=== PATIENT | female | born 1970 | race Caucasian/White ===

== ENCOUNTER 2017-04-19 22:02 | Emergency (ER) | payer OTHER ==
[~2017-04-19] VITALS: Ht 167.6 cm; Wt 99.8 kg
[~2017-04-19 22:02] MED LIST: CYCL10TA2 PO; ESCI20TA PO; ONDA4TAB10 SL; TRAM50TA PO; [UNRECOGNIZED DRUG - CODE] PO
[2017-04-19] MEDS ORDERED: ZOFRAN ODT ONE (22:31)
[2017-04-19] MEDS ORDERED: TORADOL IV STA (22:31)
[2017-04-19] MEDS ORDERED: ZOFRAN IV STA (22:31)
[2017-04-19] MEDS ORDERED: NS 1000ML 1,000 ML ONE (22:31)
[2017-04-19] MEDS ORDERED: ZOFRAN ONE (22:32)
[2017-04-19] MEDS ORDERED: TORADOL ONE (22:32)
--- NOTE | 2017-04-19 22:38 | NUR ---
URINE COLLECTED AND TAKEN TO LAB
--- NOTE | 2017-04-19 22:40 | ER.PDOC ---
General Chief Complaint: Abdomen Pain Stated Complaint: ABD PAIN Time seen by MD: 22:33 Source: patient, family History of Present Illness Initial Comments PT EXPERIENCED SHARP RUQ ABD PAIN POST PRANDIALLY, DENIES F/C, NAUSEA VOMITING ENSUED AFTER SHORT PERIOD OF TIME Allergies: Coded Allergies: No Known Allergies (Unverified , 06/22/16) Home Meds Reported Medications Omeprazole Magnesium (OMEPRAZOLE MAGNESIUM) 20 Mg Capsule.dr, 20 MG PO DAILY 06/22/16 Escitalopram Oxalate (ESCITALOPRAM OXALATE) 20 Mg Tablet, 1 TAB PO DAILY, #30 TAB 5 Refills 06/22/16 Ondansetron (ZOFRAN ODT) 4 Mg Tab.rapdis, 1 TAB SL Q8HR, #15 TAB 06/22/16 Cyclobenzaprine Hcl (FLEXERIL) 10 Mg Tablet, 1 TAB PO TID, #90 TAB 06/22/16 Vital Signs First Vital Signs Date Time Temp Pulse Resp B/P (MAP) Pulse Ox O2 Delivery O2 Flow Rate FiO2 04/19/17 22:18 98.3 109 18 94 Last Vital Signs Date Time Temp Pulse Resp B/P (MAP) Pulse Ox O2 Delivery O2 Flow Rate FiO2 04/19/17 22:22 98.3 04/19/17 22:18 109 18 94 Past Medical History Surgical History: hysterectomy LMP (females 10-50): hysterectomy Social History Smoking: non-smoker Alcohol Use: none Drug Use: none Constitutional: no symptoms reported EENTM: no symptoms reported Respiratory: no symptoms reported Cardiovascular: no symptoms reported Gastrointestinal: see HPI, abdominal pain, nausea, vomiting Genitourinary: no symptoms reported Musculoskeletal: no symptoms reported Skin: no symptoms reported Physical Exam General Appearance: Moderate Distress HEENT: PERRL/EOMI, Normal ENT Inspection, TMs Normal, Pharynx Normal Neck: Non-Tender, Full Range of Motion, Supple, Normal Inspection Respiratory: chest non-tender, lungs clear, normal breath sounds, no respiratory distress, no accessory muscle use Cardiovascular: Normal Peripheral Pulses, Regular Rate, Rhythm, No Edema, No Gallop, No JVD, No Murmur Gastrointestinal: Normal Bowel Sounds, No Organomegaly, No Pulsatile Mass, Tenderness, McBurneys 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 pt has had some relief of symptom pt had CT scsan which reealed mesenteric stranding which may indicate an inflammatory process pt hemodynamically stable, will DC to follow up with Dr Zaragoza in [place] Course Blood Pressure Systolic: 171 Blood Pressure Diastolic: 87 Blood Pressure Mean: 115 Departure Time of Disposition: 01:48 Disposition: 01 HOME, SELF-CARE Impression: Primary Impression: Abdominal pain Condition: Stable Referrals: ADAN ZARAGOZA (PCP) PRIMARY CARE PROVIDER Problem Qualifiers Primary Impression: Abdominal pain Abdominal location: right upper quadrant Qualified Codes: R10.11 - Right upper quadrant pain AYSE VALLE MD Apr 19, 2017 22:40
[2017-04-19 22:44] LABS: BASOPHIL % 0.2 % (0.0-0.2); EOSINOPHIL # 0.3 10^3/uL (0.0-0.2); EOSINOPHIL % 1.6 % (0.0-5.0); HEMOGLOBIN 13.6 g/dL (12.0-15.0); LYMPHOCYTES # 1.8 10^3/uL (1.0-4.8); MEAN CELL HGB 30.8 pg (26-34); MEAN CELL HGB CONCENTRATION 32.6 g/dL (33-37); MEAN CORP VOLUME 94.3 fL (78-100); MEAN PLATELET VOLUME 9.9 fL (7.8-11.0); MONOCYTES # 0.6 10^3/uL (0.3-0.8); MONOCYTES % 3.3 % (5.0-12.0); NEUTROPHILS % 84.6 % (41.0-85.0); RED CELL DISTRIBUTION WIDTH 13.4 % (11.5-14.5); WHITE BLOOD CELL 17.7 10^3/uL (4.5-11.0)
[2017-04-19] MEDS ORDERED: ZOFRAN ODT SL STA (22:45)
[2017-04-19 22:46] LABS: BILIRUBIN,URINE NEGATIVE (NEGATIVE); UROBILINOGEN,URINE NORMAL (NEGATIVE)
--- NOTE | 2017-04-19 22:46 | NUR ---
LAB DRAW BLOOD DRAWN WITH IV START
[2017-04-19 22:59] LABS: CALCIUM 9.3 mg/dL (8.4-10.5); CARBON DIOXIDE 22.8 mmol/L (20.0-32)
[2017-04-19] MEDS ORDERED: NS 1000ML 1,000 ML IV ONE (23:00)
[2017-04-19 23:17] LABS: APPEARANCE,URINE CLEAR (CLEAR); UA COLOR YELLOW (YELLOW); WBC,URINE 0-2 WBC/HPF (0-2)
--- NOTE | 2017-04-20 00:34 | NUR ---
CT EDP IN ROOM WITH PATIENT, NEW ORDER FOR CT ABD/PELVIS. XRAY NOTIFIED
--- NOTE | 2017-04-20 00:56 | NUR ---
TO CT PATIENT TO CT VIA WHEELCHAIR WITH ALEXANDER,RAD
--- NOTE | 2017-04-20 01:29 | DIREP ---
PROCEDURE:CT ABDOMEN/PELVIS W/ CONTRAST COMPARISON:[facility], CT, CT ABD/PELVIS W/ CONTRAST, 09/27/2016, 03:30 PM. INDICATIONS:abdominal pain TECHNIQUE:Axial images were created through the abdomen and pelvis with non-ionic intravenous contrast material. No oral contrast was administered. Sagittal and coronal reconstructions were performed from source images. FINDINGS: LUNG BASES:Normal. No visible pulmonary or pleural disease. LIVER:Normal. No significant liver lesions are identified. BILIARY:Normal. No visible dilatation or calcification. PANCREAS:Normal. No lesion, fluid collection, ductal dilatation, or atrophy. SPLEEN:Normal. No enlargement or focal lesion. ADRENALS:Normal. No mass or enlargement. URINARY TRACT:Normal. No focal lesions or hydronephrosis. AORTA/VASCULAR:Normal. No aneurysm. RETROPERITONEUM:Normal. No mass or adenopathy. BOWEL/MESENTERY:Postsurgical changes of loops of bowel in the lower abdomen/pelvis, with mesenteric fat stranding. No definite bowel obstruction or dilatation, however. ABDOMINAL WALL:Stable postsurgical stranding. No drainage catheter seen. No mass or hernia. PELVIC ORGANS:The uterus is surgically absent. No visible mass. BONES:Normal for age. No bony lesion or acute fracture. OTHER:The appendix is not identified with certainty. CONCLUSION:Postsurgical changes of loops of bowel in the lower abdomen/pelvis, with mesenteric fat stranding, possibly due to inflammatory or infectious process. No definite bowel obstruction or dilatation. No free air or abscess. Dictated by: Sanchez Hussein M.D. on 04/20/2017 at 01:24 AM
[2017-04-20 01:57] VITALS: BP 146/74
[2017-04-20] MEDS ORDERED: TRAM50TA PO (19:57)
== END 2017-04-20 01:54 | disposition home or self-care (01) ==
LOC: ER 22:02
DX: R10.11 Right upper quadrant pain (principal); R11.2 Nausea with vomiting, unspecified; Z79.899 Other long term (current) drug therapy
CPT/HCPCS: 36415; 74177; 80053; 81000; 82150; 85025; 86677; 96361; 96374; 96375; 99285; J1885; J2405; J7030; Q0162; Q9967

== ENCOUNTER 2017-04-20 17:59 | Emergency (ER) | payer OTHER ==
[~2017-04-20] VITALS: Ht 167.6 cm; Wt 99.8 kg
--- NOTE | 2017-04-20 19:38 | NUR ---
PT TO BATHROOM FOR UA COLLECTION
--- NOTE | 2017-04-20 19:45 | NUR ---
PT TO ER RM 6 ACCOMPANIED BY
[2017-04-20] MEDS ORDERED: TRAM50TA PO (19:57)
[2017-04-20 20:32] LABS: BASOPHIL % 0.3 % (0.0-0.2); EOSINOPHIL # 0.5 10^3/uL (0.0-0.2); EOSINOPHIL % 3.6 % (0.0-5.0); HEMOGLOBIN 13.9 g/dL (12.0-15.0); LYMPHOCYTES # 2.1 10^3/uL (1.0-4.8); MEAN CELL HGB 30.6 pg (26-34); MEAN CELL HGB CONCENTRATION 32.2 g/dL (33-37); MEAN CORP VOLUME 95.2 fL (78-100); MEAN PLATELET VOLUME 10.2 fL (7.8-11.0); MONOCYTES # 0.5 10^3/uL (0.3-0.8); MONOCYTES % 4.1 % (5.0-12.0); NEUTROPHILS % 75.8 % (41.0-85.0); RED CELL DISTRIBUTION WIDTH 13.5 % (11.5-14.5); WHITE BLOOD CELL 13.2 10^3/uL (4.5-11.0)
[2017-04-20 20:34] LABS: BILIRUBIN,URINE NEGATIVE (NEGATIVE); UROBILINOGEN,URINE NORMAL (NEGATIVE)
[2017-04-20 20:47] LABS: CALCIUM 9.2 mg/dL (8.4-10.5); CARBON DIOXIDE 28.1 mmol/L (20.0-32)
[2017-04-20] MEDS ORDERED: ZOFRAN IV STA (20:47)
--- NOTE | 2017-04-20 20:47 | ER.PDOC ---
General Chief Complaint: Abdomen Pain Stated Complaint: ABDOMINAL PAIN Time seen by MD: 20:30 Source: patient Exam Limitations: no limitations History of Present Illness Initial Comments 46 year old white female with abdominal pain. Started yesterday with nausea, vomiting and mild diarrhea. She was seen in ER yesterday with wbc of [address] was non specific. Sent home on pain medication but symptoms are persistent and getting worse. No fever, no chills. No dysuria. Timing/Duration: 24 hours Severity/Quality: moderate Radiation: no radiation Associated Symptoms: nausea/vomiting Exacerbated by: movements Relieved By: remaining still Allergies: Coded Allergies: No Known Allergies (Unverified , 04/20/17) Home Meds Reported Medications Tramadol Hcl (TRAMADOL HCL) 50 Mg Tablet, 50 MG PO Q6, TABLET 04/20/17 Omeprazole Magnesium (OMEPRAZOLE MAGNESIUM) 20 Mg Capsule.dr, 20 MG PO DAILY 06/22/16 Escitalopram Oxalate (ESCITALOPRAM OXALATE) 20 Mg Tablet, 1 TAB PO DAILY, #30 TAB 5 Refills 06/22/16 Ondansetron (ZOFRAN ODT) 4 Mg Tab.rapdis, 1 TAB SL Q8HR, #15 TAB 06/22/16 Cyclobenzaprine Hcl (FLEXERIL) 10 Mg Tablet, 1 TAB PO TID, #90 TAB 06/22/16 Vital Signs First Vital Signs Date Time Temp Pulse Resp B/P (MAP) Pulse Ox O2 Delivery O2 Flow Rate FiO2 04/20/17 19:49 98.4 108 16 95 04/20/17 19:54 152/102 (119) Last Vital Signs Date Time Temp Pulse Resp B/P (MAP) Pulse Ox O2 Delivery O2 Flow Rate FiO2 04/20/17 19:54 98.4 108 16 152/102 (119) 95 Past Medical History Medical History: other (depression, chronic pain symptoms) Surgical History: hysterectomy, other (knee, ankle surgery) Family History Significant Family History: no pertinent family hx Social History Smoking: non-smoker Alcohol Use: occassionally Drug Use: none Constitutional: weakness EENTM: denies no symptoms reported, denies see HPI, denies eye pain, denies blurred vision, denies tearing, denies double vision, denies ear pain, denies ear discharge, denies nose pain, denies nose congestion, denies throat pain, denies throat swelling, denies mouth pain, denies mouth swelling, denies other Respiratory: denies no symptoms reported, denies see HPI, denies cough, denies orthopnea, denies shortness of breath, denies SOB with exertion, denies SOB at rest, denies stridor, denies wheezing, denies other Cardiovascular: denies no symptoms reported, denies see HPI, denies chest pain , denies edema, denies irregular heart rate, denies lightheadedness, denies palpitations, denies syncope, denies other Gastrointestinal: see HPI Genitourinary: denies no symptoms reported, denies see HPI, denies burning, denies dysuria, denies discharge, denies frequency, denies flank pain, denies hematuria, denies incontinence, denies pain, denies urgency, denies other Musculoskeletal: denies no symptoms reported, denies see HPI, denies back pain , denies gout, denies joint pain, denies joint swelling, denies muscle pain, denies muscle stiffness, denies neck pain, denies other Skin: denies no symptoms reported, denies see HPI, denies change in color, denies change in hair/nails, denies dryness, denies lesions, denies lumps, denies rash, denies other Psychiatric/Neurological: denies no symptoms reported, denies see HPI, denies anxiety, denies depressed, denies emotional problems, denies headache, denies numbness, denies paresthesia, denies pre-existing deficit, denies seizure, denies tingling, denies tremors, denies weakness, denies other Endocrine: denies no symptoms reported, denies see HPI, denies excessive sweating, denies flushing, denies intolerance to cold, denies intolerance to heat, denies increased hunger, denies increased thrist, denies increased urine, denies unexplained weight gain, denies unexplaned weight loss, denies other Hematologic/Lymphatic: denies no symptoms reported, denies see HPI, denies anemia, denies blood clots, denies easy bleeding, denies easy bruising, denies swollen glands, denies other Physical Exam General Appearance: No Apparent Distress, WD/WN HEENT: PERRL/EOMI, Normal ENT Inspection, TMs Normal, Pharynx Normal, Other ( mucosa is dry) Neck: Non-Tender, Full Range of Motion, Supple, Normal Inspection Respiratory: chest non-tender, lungs clear, normal breath sounds, no respiratory distress, no accessory muscle use Cardiovascular: Normal Peripheral Pulses, Regular Rate, Rhythm, No Edema, No Gallop, No JVD, No Murmur Gastrointestinal: Normal Bowel Sounds, Soft, Other (response to physical maneuver appears to be exaggerated. 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, No Motor/Sensory Deficits, Alert, Normal Mood/Affect, Oriented x 3 Skin: Normal Color, Warm/Dry Lymphatic: No Adenopathy Results/Orders Results/Orders Laboratory Tests Test 04/20/17 19:45 White Blood Count 13.2 10^3/uL (4.5-11.0) Red Blood Count 4.54 10^6/uL (4.00-5.20) Hemoglobin 13.9 g/dL (12.0-15.0) Hematocrit 43.2 % (36.0-46.0) Mean Corpuscular Volume 95.2 fL (78-100) Mean Corpuscular Hemoglobin 30.6 pg (26-34) Mean Corpuscular Hemoglobin Concent 32.2 g/dL (33-37) Red Cell Distribution Width 13.5 % (11.5-14.5) Platelet Count 269 10^3/uL (150-400) Mean Platelet Volume 10.2 fL (7.8-11.0) Neutrophils (%) (Auto) 75.8 % (41.0-85.0) Lymphocytes (%) (Auto) 16.0 % (24.0-44.0) Monocytes (%) (Auto) 4.1 % (5.0-12.0) Neutrophils # (Auto) 10.0 10^3/uL (1.8-7.7) Lymphocytes # (Auto) 2.1 10^3/uL (1.0-4.8) Monocytes # (Auto) 0.5 10^3/uL (0.3-0.8) Absolute Immature Granulocyte (auto 0.02 10^3 u/L (0-2) Eosinophils % 3.6 % (0.0-5.0) Basophils % 0.3 % (0.0-0.2) Basophils # 0.0 10^3/uL (0.0-0.1) Eosinophil Count 0.5 10^3/uL (0.0-0.2) Percent Immature Gran (Cell Imm) 0.20 % (0.00-0.50) Helicobacter pylori Screen NEGATIVE (NEGATIVE) Progress Progress Labs and sonogram results reviewed with patient. Non surgical Course Blood Pressure Systolic: 152 Blood Pressure Diastolic: 102 Blood Pressure Mean: 119 Departure Time of Disposition: 22:24 Disposition: 01 HOME, SELF-CARE Impression: Primary Impression: Abdominal pain Additional Impression: Gastroenteritis Condition: Stable Referrals: ADAN KEARNEY (PCP) PRIMARY CARE PROVIDER Additional Instructions: Clear liquid diet Phenergan prn Tylenol #3 prn Bentyl prn RTER prn Follow up PCP Problem Qualifiers Primary Impression: Abdominal pain Abdominal location: generalized Qualified Codes: R10.84 - Generalized abdominal pain KHRIS BAUER MD Apr 20, 2017 20:47
[2017-04-20 20:53] LABS: APPEARANCE,URINE CLEAR (CLEAR); UA COLOR YELLOW (YELLOW)
[2017-04-20 20:54] LABS: WBC,URINE 0-2 WBC/HPF (0-2)
[2017-04-20] MEDS ORDERED: NS 1000ML 1,000 ML ONE (20:57)
[2017-04-20] MEDS ORDERED: ZOFRAN ONE (20:58)
[2017-04-20] MEDS ORDERED: MORPHINE SULFATE ONE (20:58)
[2017-04-20] MEDS ORDERED: NS 1000ML 1,000 ML IV ONE (21:00)
[2017-04-20] MEDS ORDERED: MORPHINE SULFATE IV PRN (21:00)
--- NOTE | 2017-04-20 22:02 | DIREP ---
PROCEDURE:US ABDOMEN LIMITED (SINGLE ORGAN - QUAD) COMPARISON:None. INDICATIONS:DIARRHEA, CRAMPING PAIN, TECHNIQUE:High resolution sonographic examination was performed of the abdomen. FINDINGS: RIGHT KIDNEY:10.77 cm x 5.41 cm x 4.86 cm, 148.21 ml GALL BLADDER WALL:1.87 mm CBD:5.0 mm PANCREAS:Normal. LIVER:Increased echotexture compatible hepatic steatosis. No significant masses. BILIARY:Normal appearing gallbladder and biliary tree. RIGHT KIDNEY:Negative. OTHER:Negative. CONCLUSION: Hepatic steatosis. No evidence of gallstones. No biliary ductal dilatation. Dictated by: Nikita Escudero MD on 04/20/2017 at 09:57 PM
[2017-04-20 22:44] VITALS: BP 117/72
== END 2017-04-20 22:40 | disposition home or self-care (01) ==
LOC: ER 17:59
DX: K52.9 Noninfective gastroenteritis and colitis, unspecified (principal); F32.9 Major depressive disorder, single episode, unspecified; Z79.899 Other long term (current) drug therapy
CPT/HCPCS: 36415; 76705; 80053; 81000; 82150; 83690; 85025; 85610; 86677; 96361; 96374; 96375; 99285; J2270; J2405; J7030

== ENCOUNTER → 2019-01-21 | Outpatient (CLI) | payer BC ==
--- NOTE | 2019-01-21 16:26 | DIREP ---
PROCEDURE:XRAY RIBS 3VWS-LT COMPARISON:None. INDICATIONS:R07.81 RIB PAIN ON LEFT SIDE FINDINGS: RIBS:Nondisplaced fractures of the anterior 4th, 5th, and 6th left ribs OTHER:Blunting of the left costophrenic angle CONCLUSION: 1. Nondisplaced fractures of the 4th, 5th, and 6th left anterior ribs 2. Blunting of left costophrenic angle in keeping with small pleural effusion. Dictated by: Homer Siegel Jr. on 01/21/2019 at 03:16 PM Read in [place]
--- NOTE | 2019-01-21 16:29 | DIREP ---
PROCEDURE:XRAY SPINE LUMBAR 2-3 VWS COMPARISON:[facility], CT, CT ABD/PELVIS W/ CONTRAST, 10/02/2017, 12:12 PM. INDICATIONS:M54.42 LOW BACK PAIN W/LEFT SIDED SCIATICA TECHNIQUE:AP, lateral, and coned down lateral views of the lumbar spine are provided. FINDINGS: ALIGNMENT:Slight, less than 5�, levoscoliosis VERTEBRAE:Normal. DISK SPACES:Moderate degenerative disc disease at L2/3 with loss of disc height, endplate sclerosis, and anterior osteophytosis SPONDYLOLISTHESIS:None. SACROILIAC JOINTS:Normal. OTHER:Normal. CONCLUSION: 1. Slight levoscoliosis 2. Degenerative disc disease at L2/3 Dictated by: Homer Siegel Jr. on 01/21/2019 at 03:25 PM Read in [place]
--- NOTE | 2019-01-21 16:32 | DIREP ---
PROCEDURE:C-Spine 5 views TECHNIQUE:AP, lateral, bilateral oblique, and dens views of the cervical spine are provided. COMPARISON:None. INDICATIONS:M54.2 CERVICAL SPINE PAIN FINDINGS: ALIGNMENT:There is approximately 3 mm anterior subluxation of C4 on C5. There is moderate reversal of the normal lower cervical lordosis. VERTEBRAE:Normal. DISK SPACES:There is moderate degenerative loss of disk height at the C5-6 level. There is moderate degenerative loss of disk height at the C6-7 level. CERVICAL RIBS:None. JOINTS:At C4-5, there is right-sided mild uncovertebral joint hypertrophy, resulting in mild bony neural foraminal stenosis. At C5-6, there is bilateral moderate uncovertebral joint hypertrophy, resulting in moderate bony neural foraminal stenosis. At C6-7, there is left-sided mild uncovertebral joint hypertrophy, resulting in mild bony neural foraminal stenosis. OTHER:Normal. CONCLUSION: There is moderate reversal of the normal lower cervical lordosis. Moderate C5-6 degenerative disk disease. Moderate C6-7 degenerative disk disease. Mild right-sided C4-5 neural foraminal stenosis due to mild uncovertebral joint hypertrophy. Moderate bilateral C5-6 neural foraminal stenosis due to moderate uncovertebral joint hypertrophy. Mild left-sided C6-7 neural foraminal stenosis due to mild uncovertebral joint hypertrophy. Dictated by: Homer Siegel Jr. on 01/21/2019 at 03:28 PM Read in [place]
== END | disposition home or self-care (01) ==
LOC: RAD 15:16
PROVIDERS: ATTEND Nurse Practitioner Family
DX: S22.42XA Multiple fractures of ribs, left side, initial encounter for closed fracture (principal); M50.322 Other cervical disc degeneration at C5-C6 level; M40.40 Postural lordosis, site unspecified; M48.02 Spinal stenosis, cervical region; M51.36 Other intervertebral disc degeneration, lumbar region; M41.86 Other forms of scoliosis, lumbar region; J90 Pleural effusion, not elsewhere classified; X58.XXXA Exposure to other specified factors, initial encounter; Y93.89 Activity, other specified; Y92.89 Other specified places as the place of occurrence of the external cause; Y99.8 Other external cause status
CPT/HCPCS: 72050; 72100; 71100-LT

== ENCOUNTER → 2019-05-12 | Outpatient (CLI) | payer BC ==
--- NOTE | 2019-05-12 15:02 | DIREP ---
PROCEDURE:MRI JOINT LOWER EXTREMITY-LT W/O COMPARISON:None. INDICATIONS:HIGH LEFT ANKLE SPRAIN TECHNIQUE:A complete multi-planar examination was performed without contrast. Severely limited due to significant motion on the sagittal T2 fat saturated images. FINDINGS: LATERAL LIGAMENTS AND SOFT TISSUE STRUCTURES TALOFIBULAR:Normal. CALCANEOFIBULAR:Normal. TIBIOFIBULAR:Normal. PERONEAL TENDONS:Mild fluid distention of the tendon sheath. No abnormal internal signal or tear. MEDIAL LIGAMENTS AND SOFT TISSUE STRUCTURES DELTOID COMPLEX:Normal. SPRING LIGAMENT:Normal. TARSAL TUNNEL:Normal. FLEXORS:Normal. OTHER TENDONS EXTENSORS:Normal. ACHILLES:Normal. No surrounding abnormality. PLANTAR FASCIA:Normal. No tear or surrounding soft tissue edema to suggest fasciitis. SINUS TARSI:Normal. No edema or synovitis to suggest sinus tarsi syndrome. BONES:Small os fibulare. No arthropathy, bone edema, osteochondral defect, or other bone lesion. EFFUSIONS:None. No synovitis or loose bodies. OTHER:Nonspecific edema layering along the superficial fascia.. CONCLUSION: 1. Nonspecific soft tissue edema without underlying internal derangement of the ligamentous or tendinous structures. This is most pronounced medially. 2. Mild fluid distention of the coronal tendon sheath, without abnormal tendon signal. 3. Incidentally noted accessory ossicle at the fibular tip. Dictated by: Humberto Cerrato DO on 05/12/2019 at 02:56 PM
== END | disposition home or self-care (01) ==
LOC: RAD 12:48
PROVIDERS: ATTEND Orthopaedic Surgery
DX: S93.402A Sprain of unspecified ligament of left ankle, initial encounter (principal); X58.XXXA Exposure to other specified factors, initial encounter; Y93.9 Activity, unspecified; Y92.9 Unspecified place or not applicable; Y99.9 Unspecified external cause status
CPT/HCPCS: 73721

== ENCOUNTER 2019-06-22 21:56 | Inpatient (IN) | payer BC ==
[~2019-06-22] VITALS: Ht 167.6 cm; Wt 105.0 kg
[2019-06-22 22:02] VITALS: BP 164/73
--- NOTE | 2019-06-22 22:11 | ER.PDOC ---
General Chief Complaint: Abdomen Pain Stated Complaint: ABD PAIN Time seen by MD: 22:00 Source: patient Exam Limitations: no limitations History of Present Illness Initial Comments Acute onset unrelenting abdominal pain with nausea/vomiting since 1600 today. Extensive surgical history began with bowel perf, colon resection and colostomy with reversal, multiple ventral hernias. Timing/Duration: 4-6 hours Severity/Quality: severe Radiation: LUQ, RLQ, LLQ Associated Symptoms: nausea/vomiting Exacerbated by: movements, food Relieved By: nothing Allergies: Coded Allergies: No Known Allergies (Unverified , 04/20/17) Home Meds Reported Medications Dicyclomine Hcl (DICYCLOMINE HCL) 20 Mg Tablet, 20 MG PO PRN PRN for PAIN, TAB 06/22/19 Promethazine Hcl (PHENERGAN) 25 Mg/1 Ml Ampul, 25 MG PO PRN PRN for NAUSEA, AMPULE 06/22/19 Acetaminophen With Codeine (TYLENOL-COD #4 TABLET) 1 Each Tablet, 1 EACH PO Q4H PRN for PAIN, #30 TAB 06/22/19 Gabapentin (GABAPENTIN) 300 Mg Capsule, 1 CAP PO TID, #90 CAP 5 Refills 06/22/19 Metoprolol Succinate (METOPROLOL SUCCINATE) 50 Mg Tab.er.24h, 1 TAB PO DAILY, #30 TAB 5 Refills 06/22/19 Escitalopram Oxalate (ESCITALOPRAM OXALATE) 20 Mg Tablet, 1 TAB PO DAILY, #30 TAB 5 Refills 06/22/16 Ondansetron (ZOFRAN ODT) 4 Mg Tab.rapdis, 1 TAB SL Q8HR, #15 TAB 06/22/16 Cyclobenzaprine Hcl (FLEXERIL) 10 Mg Tablet, 1 TAB PO TID, #90 TAB 06/22/16 Discontinued Reported Medications Tramadol Hcl (TRAMADOL HCL) 50 Mg Tablet, 50 MG PO Q6, TABLET 04/20/17 Omeprazole Magnesium (OMEPRAZOLE MAGNESIUM) 20 Mg Capsule.dr, 20 MG PO DAILY 06/22/16 Vital Signs First Vital Signs Date Time Temp Pulse Resp B/P (MAP) Pulse Ox O2 Delivery O2 Flow Rate FiO2 06/22/19 22:02 98.1 104 16 164/73 (103) 93 Room Air Last Vital Signs Date Time Temp Pulse Resp B/P (MAP) Pulse Ox O2 Delivery O2 Flow Rate FiO2 06/23/19 02:00 98.1 102 16 162/91 (114) 93 Room Air Past Medical History Surgical History: hysterectomy, other (colon resection, colostomy, reversal, ve ntral hernias) Social History Drug Use: none Constitutional: no symptoms reported EENTM: no symptoms reported Respiratory: no symptoms reported Cardiovascular: no symptoms reported Gastrointestinal: abdomen distended, abdominal pain, nausea, vomiting Genitourinary: no symptoms reported Musculoskeletal: no symptoms reported Skin: no symptoms reported Psychiatric/Neurological: no symptoms reported Endocrine: no symptoms reported Hematologic/Lymphatic: no symptoms reported Physical Exam General Appearance: WD/WN, Moderate Distress HEENT: PERRL/EOMI, Normal ENT Inspection, TMs Normal, Pharynx Normal Neck: Non-Tender, Full Range of Motion, Supple, Normal Inspection Respiratory: chest non-tender, lungs clear, normal breath sounds, no respiratory distress, no accessory muscle use Cardiovascular: Normal Peripheral Pulses, Regular Rate, Rhythm, No Edema, No Gallop, No JVD, No Murmur Gastrointestinal: Normal Bowel Sounds, Distended, Guarding, Tenderness (generalized) Back: Normal Inspection, No CVA Tenderness, No Vertebral Tenderness Extremities: Normal Range of Motion, Non-Tender, Normal Inspection, No Pedal Edema, No Calf Tenderness, Normal Capillary Refill, Pelvis Stable 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 No complications. Results/Orders Results/Orders Orders - SERJIO DEJESUS MD Cbc With Auto Diff (06/22/19 22:12) Comprehensive Metabolic Panel (06/22/19 22:12) Amylase (06/22/19 22:12) Lipase (06/22/19 22:12) Ct Abd/Pel With Iv Contrast (06/22/19 22:12) Urinalysis (06/22/19 22:12) Saline Lock (06/22/19 22:12) Lactic Acid(Ml) (06/22/19 22:12) Ngt To Lis (06/23/19 00:44) Morphine Sulfate (Morphine Sulfate) (06/23/19 00:44) Promethazine Hcl (Phenergan) (06/23/19 00:44) Xr Abd 1v (06/23/19 01:01) Vital Signs Date Time Temp Pulse Resp B/P (MAP) Pulse Ox O2 Delivery O2 Flow Rate FiO2 06/23/19 02:00 98.1 102 16 162/91 (114) 93 Room Air 06/23/19 01:00 98.1 101 16 150/89 (109) 92 Room Air 06/23/19 00:00 98.1 102 16 157/97 (117) 92 Room Air 06/22/19 23:07 98.1 97 16 153/88 (109) 93 Room Air 06/22/19 22:02 98.1 104 16 93 06/22/19 22:02 98.1 104 16 06/22/19 22:02 98.1 104 16 164/73 (103) 93 Room Air Administered Medications Medications (Trade) Dose Ordered Sig/Prnice Route PRN Reason Start Time Stop Time Status Last Admin Dose Admin Morphine Sulfate (Morphine Sulfate) 4 mg OT STAT IV 06/23/19 00:44 06/23/19 00:45 UNV 06/23/19 01:08 4 MG Promethazine HCl (Phenergan) 12.5 mg STAT STAT IV 06/23/19 00:44 06/23/19 00:45 UNV 06/23/19 01:08 12.5 MG Laboratory Tests Test 06/22/19 22:20 06/22/19 22:30 White Blood Count 18.4 10^3/uL (4.5-11.0) H Red Blood Count 4.96 10^6/uL (4.00-5.20) Hemoglobin 15.0 g/dL (12.0-15.0) Hematocrit 44.6 % (36.0-46.0) Mean Corpuscular Volume 89.9 fL (78-100) Mean Corpuscular Hemoglobin 30.2 pg (26-34) Mean Corpuscular Hemoglobin Concent 33.6 g/dL (33-37) Red Cell Distribution Width 13.1 % (11.5-14.5) Platelet Count 312 10^3/uL (150-400) Mean Platelet Volume 9.8 fL (7.8-11.0) Neutrophils (%) (Auto) 86.2 % (41.0-85.0) H Lymphocytes (%) (Auto) 8.5 % (24.0-44.0) L Monocytes (%) (Auto) 3.7 % (5.0-12.0) L Neutrophils # (Auto) 15.9 10^3/uL (1.8-7.7) H Lymphocytes # (Auto) 1.6 10^3/uL (1.0-4.8) Monocytes # (Auto) 0.7 10^3/uL (0.3-0.8) Absolute Immature Granulocyte (auto 0.04 10^3 u/L (0-2) Absolute Eosinophils (auto) 0.2 10^3/uL (0.0-0.2) Immature Granulocytes % 0.20 % (0.00-0.50) Eosinophils % 1.1 % (0.0-5.0) Basophils % 0.3 % (0.0-0.2) H Basophils # 0.1 10^3/uL (0.0-0.1) Sodium Level 137 mmol/L (132-145) Potassium Level 3.8 mmol/L (3.6-5.2) Chloride Level 100.0 mmol/L (96-109) Carbon Dioxide Level 23.5 mmol/L (20.0-32) Anion Gap 17.3 Blood Urea Nitrogen 11 mg/dL (7-18) Creatinine 0.99 mg/dL (0.59-1.40) Estimated GFR () 71.8 (>/=60) Est GFR (CKD-EPI)(Non-Afr Beninese) 59.4 (>/=60) BUN/Creatinine Ratio 11.0 Glucose Level 143 mg/dL (70-110) H Lactic Acid Level 1.8 mmol/L (0.50-2.00) Calcium Level 9.9 mg/dL (8.4-10.5) Total Bilirubin 0.4 mg/dL (0.2-1.0) Aspartate Amino Transferase (AST) 26 U/L (0-35) Alanine Aminotransferase (ALT) 39 U/L (12-78) Alkaline Phosphatase 108 U/L (50-136) Total Protein 8.2 g/dL (6.4-8.2) Albumin 4.3 g/dL (3.4-5.0) Globulin 3.9 Amylase Level 37 U/L (25-115) Lipase 104 U/L (114-286) L Urine Collection Type VOID Urine Color YELLOW (YELLOW) Urine Appearance CLEAR (CLEAR) Urine Bilirubin NEGATIVE MG/DL (NEGATIVE) Urine Ketones NEGATIVE (NEGATIVE) Urine Specific [place] 1.020 (1.005-1.035) Urine pH 6 (5.0-6.0) Urine Protein 30 mg/dL (NEGATIVE) H Urine Urobilinogen NORMAL (NEGATIVE) Urine Nitrate NEGATIVE (NEGATIVE) Urine Leukocyte Esterase NEGATIVE (NEGATIVE) Urine Blood 50 2+ (NEGATIVE) H Urine RBC 0-2 RBC/HPF (NONE SEEN) Urine WBC 2-5 WBC/HPF (0-2) Urine Squamous Epithelial Cells FEW #/HPF (FEW) Urine Bacteria NONE SEEN (NONE SEEN) Urine Glucose NORMAL (NEGATIVE) EKG/XRAY/CT/US CT Comments: incarcerated hernia L of umbilicus Course Vitals & review Data Vital Sign - Last 24 Hours 06/22/19 06/22/19 06/22/19 06/22/19 22:02 22:02 22:02 23:07 Temp 98.1 98.1 98.1 98.1 Pulse 104 104 104 97 Resp 16 16 16 16 B/P (MAP) 164/73 (103) 153/88 (109) Pulse Ox 93 93 93 O2 Delivery Room Air Room Air 06/23/19 06/23/19 06/23/19 00:00 01:00 02:00 Temp 98.1 98.1 98.1 Pulse 102 101 102 Resp 16 16 16 B/P (MAP) 157/97 (117) 150/89 (109) 162/91 (114) Pulse Ox 92 92 93 O2 Delivery Room Air Room Air Room Air Laboratory Tests Test 06/22/19 22:20 06/22/19 22:30 White Blood Count 18.4 10^3/uL Red Blood Count 4.96 10^6/uL Hemoglobin 15.0 g/dL Hematocrit 44.6 % Mean Corpuscular Volume 89.9 fL Mean Corpuscular Hemoglobin 30.2 pg Mean Corpuscular Hemoglobin Concent 33.6 g/dL Red Cell Distribution Width 13.1 % Platelet Count 312 10^3/uL Mean Platelet Volume 9.8 fL Neutrophils (%) (Auto) 86.2 % Lymphocytes (%) (Auto) 8.5 % Monocytes (%) (Auto) 3.7 % Neutrophils # (Auto) 15.9 10^3/uL Lymphocytes # (Auto) 1.6 10^3/uL Monocytes # (Auto) 0.7 10^3/uL Absolute Immature Granulocyte (auto 0.04 10^3 u/L Absolute Eosinophils (auto) 0.2 10^3/uL Immature Granulocytes % 0.20 % Eosinophils % 1.1 % Basophils % 0.3 % Basophils # 0.1 10^3/uL Sodium Level 137 mmol/L Potassium Level 3.8 mmol/L Chloride Level 100.0 mmol/L Carbon Dioxide Level 23.5 mmol/L Anion Gap 17.3 Blood Urea Nitrogen 11 mg/dL Creatinine 0.99 mg/dL Estimated GFR () 71.8 Est GFR (CKD-EPI)(Non-Afr Beninese) 59.4 BUN/Creatinine Ratio 11.0 Glucose Level 143 mg/dL Lactic Acid Level 1.8 mmol/L Calcium Level 9.9 mg/dL Total Bilirubin 0.4 mg/dL Aspartate Amino Transf (AST/SGOT) 26 U/L Alanine Aminotransferase (ALT/SGPT) 39 U/L Alkaline Phosphatase 108 U/L Total Protein 8.2 g/dL Albumin 4.3 g/dL Globulin 3.9 Amylase Level 37 U/L Lipase 104 U/L Urine Collection Type VOID Urine Color YELLOW Urine Appearance CLEAR Urine Bilirubin NEGATIVE MG/DL Urine Ketones NEGATIVE Urine Specific [place] 1.020 Urine pH 6 Urine Protein 30 mg/dL Urine Urobilinogen NORMAL Urine Nitrate NEGATIVE Urine Leukocyte Esterase NEGATIVE Urine Blood 50 2+ Urine RBC 0-2 RBC/HPF Urine WBC 2-5 WBC/HPF Urine Squamous Epithelial Cells FEW #/HPF Urine Bacteria NONE SEEN Urine Glucose NORMAL Current Medications Medications (Trade) Dose Ordered Sig/Prince PRN Reason Start Time Stop Time Status Last Admin Morphine Sulfate (Morphine Sulfate) 4 mg OT STAT 06/23/19 00:44 06/23/19 00:45 UNV 06/23/19 01:08 Promethazine HCl (Phenergan) 12.5 mg STAT STAT 06/23/19 00:44 06/23/19 00:45 UNV 06/23/19 01:08 O2 Sat by Pulse Oximetry: 93 Departure Time of Disposition: 03:22 Disposition: 09 ADMITTED INPATIENT Impression: Primary Impression: Small bowel obstruction Additional Impression: Incarcerated ventral hernia Condition: Stable Referrals: ADAN KEARNEY (PCP) PRIMARY CARE PROVIDER Duration or Time Spent with Pa: 45 Problem Qualifiers SERJIO DEJESUS MD Jun 22, 2019 22:11
[2019-06-22] MEDS ORDERED: PROM25AM6 PO (22:19)
[2019-06-22] MEDS ORDERED: ACET1TAB38 PO (22:19)
[2019-06-22] MEDS ORDERED: GABA300C10 PO (22:19)
[2019-06-22] MEDS ORDERED: METO-237 PO (22:19)
[2019-06-22] MEDS ORDERED: DICY20TA3 PO (22:19)
[2019-06-22 22:27] LABS: BASOPHIL # 0.1 10^3/uL (0.0-0.1); BASOPHIL % 0.3 % (0.0-0.2); EOSINOPHIL # 0.2 10^3/uL (0.0-0.2); EOSINOPHIL % 1.1 % (0.0-5.0); LYMPHOCYTES # 1.6 10^3/uL (1.0-4.8); LYMPHOCYTES % 8.5 % (24.0-44.0); MEAN CORP HGB 30.2 pg (26-34); MONOCYTES # 0.7 10^3/uL (0.3-0.8); MONOCYTES % 3.7 % (5.0-12.0); NEUTROPHIL # 15.9 10^3/uL (1.8-7.7); NEUTROPHILS % 86.2 % (41.0-85.0); RED CELL DISTRIBUTION WIDTH 13.1 % (11.5-14.5)
--- NOTE | 2019-06-22 22:37 | NUR ---
URINE COLLECTED AND TAKEN TO LAB
[2019-06-22 22:39] LABS: BILIRUBIN,URINE NEGATIVE (NEGATIVE); UROBILINOGEN,URINE NORMAL (NEGATIVE)
[2019-06-22 22:41] LABS: CALCIUM 9.9 mg/dL (8.4-10.5); CARBON DIOXIDE 23.5 mmol/L (20.0-32)
[2019-06-22 22:46] LABS: APPEARANCE,URINE CLEAR (CLEAR); UA COLOR YELLOW (YELLOW)
[2019-06-22 23:07] VITALS: BP 153/88
[2019-06-23] VITALS (11 sets, daily range): BP systolic 110–162; BP diastolic 54–104
--- NOTE | 2019-06-23 00:11 | NUR ---
BACK FROM CT PATIENT BACK FROM CT, NO NEEDS VOICED BY PATIENT
--- NOTE | 2019-06-23 00:33 | DIREP ---
PROCEDURE:CT ABD/PELVIS W/ CONTRAST TECHNIQUE: COMPARISON:[facility], CT, CT ABD/PELVIS W/ CONTRAST, 10/02/2017, 12:12 PM. INDICATIONS:Abdominal pain/vomiting FINDINGS: LOWER CHEST:The lung bases are clear. LIVER:Normal. BILIARY:Normal. PANCREAS:Normal. SPLEEN:Normal. URINARY TRACT:Normal. ADRENALS:Normal. AORTA/VASCULAR:Normal. RETROPERITONEUM:Normal. BOWEL/MESENTERY:There are dilated loops of small bowel measuring up to 4.2 cm. The large bowel is decompressed. There are areas of GI anastomotic sutures. ABDOMINAL WALL:There are multiple defects in the ventral fascia. Some of these contain only mesenteric fat. There are 2 about the level of the umbilicus. To the right of midline, these contain nondistended loops of small bowel. To the left, there is an incarcerated loop of small bowel. PELVIS:Hysterectomy. BONES:Early degenerative disc disease at L2-3. OTHER:Normal. CONCLUSION:Developing small bowel obstruction as above. The transition point is the incarcerated loop of small bowel, just left of midline, about the umbilicus Dictated by: Micheal Chan M.D. on 06/23/2019 at 00:28 AM
[2019-06-23] MEDS ORDERED: PHENERGAN IV STA (00:44)
[2019-06-23] MEDS ORDERED: MORPHINE SULFATE IV STA (00:44)
--- NOTE | 2019-06-23 00:59 | NUR ---
NGT: 14 Fr NGT PLACED TO RIGHT NARE. SECURED TO NOSE WITH SILK TAPE. CHECKED PLACEMENT WITH ASCULATION OF AIR AND YELLOW/GREEN GASTRIC CONTENT IN TUBING. PT TOLERATED WELL. CLAMPED. PORTABLE KUB ORDERED.
--- NOTE | 2019-06-23 01:17 | NUR ---
NGT: PLACEMENT OF NGT VERIFIED BY MD AT BEDSIDE. RBVO TO CONNECT NGT TO LIS.
--- NOTE | 2019-06-23 01:20 | DIREP ---
PROCEDURE:XRAY ABDOMEN SINGLE VW COMPARISON:None. INDICATIONS:NGT PLACEMENT FINDINGS: BOWEL GAS PATTERN:Normal. CALCIFICATIONS:None significant. LUNG BASES:Clear. BONES:Normal. OTHER:There is an NG tube with the distal tip over the body stomach. CONCLUSION: The distal tip of the NG tube projects over the body stomach Dictated by: Micheal Chan M.D. on 06/23/2019 at 01:18 AM
--- NOTE | 2019-06-23 02:54 | NUR ---
ROUNDS: PT RETING WITH EYES CLOSED. NO DISTRESS NOTED. NGT DRAINING THIN YELLOW BILE.
--- NOTE | 2019-06-23 03:15 | NUR ---
DR ROYA MONTALVOP ON PHONE WITH ROYA
--- NOTE | 2019-06-23 03:35 | NUR ---
REPORT GIVEN TO BISHNU SCHULTE
--- NOTE | 2019-06-23 06:45 | NUR ---
DR. PRYOR NOTIFIED PT WAS HURTING ORDER RECEIVED FOR MORPHINE 4MG IV X1 DOSE ZOFRAN 4MG IV X 1 DOSE.
[2019-06-23] MEDS ORDERED: ZOFRAN 4 MG/2 ML VIAL IV ONE (07:00)
[2019-06-23] MEDS ORDERED: MORPHINE SULFATE IV ONE (07:00)
[2019-06-23] MEDS ORDERED: NS 1000ML 1,000 ML IV ONE (09:00)
[2019-06-23] MEDS ORDERED: ZOFRAN 4 MG/2 ML VIAL IV PRN (09:00)
[2019-06-23] MEDS ORDERED: SENSORCAINE 0.5% VIAL ONE (09:29)
[2019-06-23] MEDS ORDERED: NEOSTIGMINE ONE (09:29)
[2019-06-23] MEDS ORDERED: NS 100ML 100 ML IV ONE (09:29)
[2019-06-23] MEDS ORDERED: LIDOCAINE 2% VIAL ONE ×2 (09:29→09:40)
[2019-06-23] MEDS ORDERED: ZEMURON IV ONE (09:30)
[2019-06-23] MEDS ORDERED: SUBLIMAZE ONE (09:31)
[2019-06-23] MEDS ORDERED: DILAUDID ONE (09:31)
[2019-06-23] MEDS ORDERED: VERSED ONE (09:31)
--- NOTE | 2019-06-23 09:38 | HPH ---
ADMIT DATE: 06/23/2019 [facility] PRIMARY CARE PHYSICIAN: Dr. Zaragoza in [place]. ADMITTING DIAGNOSES: Small-bowel obstruction with periumbilical pain with ventral hernias, nausea, vomiting, dehydration. CHIEF COMPLAINT: Belly pain and vomiting. HISTORY OF PRESENT ILLNESS: The patient is a 48-year-old female who had ventral hernia repair with lysis of adhesions done 2 years ago here in our hospital and was sent home and did fine for the past 2 years. She states that in the past month, she has been having increasing periumbilical pain. She feels like she has another hernia and she has been trying to reduce this at home for the past month and she was successfully initially; however, in the past couple of days, she states that she is having more increasing pain with nausea and vomiting. Her last bowel movement was yesterday. She denies any fevers. No chills, no chest pains, no dysuria, no hematemesis, no melena, no hematochezia reported. With this increasing pain and her suspecting that she has another hernia forming, she went ahead and brought herself to the ER last night. No trauma reported recently. No recent travel. She has not eaten anything out of the ordinary. PAST MEDICAL HISTORY: Significant for some headaches and muscle spasms and depression. PAST SURGICAL HISTORY: She had a perforated colon back in 2012 and had a colostomy reversal after that, hernia repair in 2013 and again hernia repairs with lysis of adhesions in 2016, ovarian cyst removal in 2013. She has also had a hysterectomy. SOCIAL HISTORY: She does admit to some tobacco use. No illicit drugs, no alcohol reported. MEDICATIONS: She is on include Lexapro, gabapentin, Bentyl, Flexeril. FAMILY HISTORY: Noncontributory for this admission. ALLERGIES: SULFA MEDICATION. PHYSICAL EXAMINATION: VITAL SIGNS: In the ER when she first came in, temperature is 98.1, pulse rate is 104, respirations 16, blood pressure was 164/73. It did come down to 138/69 once her pain was resolved. O2 sats of 93%. My physical exam is as follows: GENERAL: By the time I saw this morning, the ER had already given her pain medicines and reduced the abdominal hernia that was present. She is in no acute distress, awake and alert, oriented times 4. HEENT: Oropharynx is clear. NG tube is secured. NECK: Supple. No JVD noted. HEART: S1, S2 audible. Heart rate on my exam was about 76 beats a minute, no murmurs. LUNGS: Clear bilaterally. ABDOMEN: She does have a quiet abdomen, very hypoactive bowel sounds at this point, she is tender right to the left of midline around the periumbilical region. No masses felt at this time. EXTREMITIES: No pitting edema. She has some varicose veins in her legs, 2+ distal pulses are noted. SKIN: Warm and dry. LABORATORY DATA: Labs were obtained in the ER. Her white count was elevated to 18,400, hemoglobin of 15, platelet count of 312. Chemistry panel looked okay. Glucose of 143, albumin 4.3. Lactic acid level is 1.8. UA had 2+ blood with 30 mg of protein. IMAGING STUDIES: She had a CT scan of the abdomen and pelvis that showed developing dilated loops of small bowel with a transition point around the umbilicus. ASSESSMENT: We have this female with small-bowel obstruction, history of hernia repairs. I will continue the NG to low intermittent suction and keep her n.p.o., put her on IV fluids with pain control, Protonix and Lovenox for DVT prophylaxis and have surgery evaluate her. Yaneth Bai MD DR: FARHANA/jeramy JOB# [id number]
[2019-06-23] MEDS ORDERED: DIPRIVAN IV ONE (09:40)
[2019-06-23] MEDS: NS 1000ML/KCL 20MEQ 1,000 ML IV SCH ×3 (09:52→17:52)
[2019-06-23] MEDS: PROTONIX IV IV SCH (09:53)
[2019-06-23] MEDS: LOVENOX SQ SCH (09:53)
--- NOTE | 2019-06-23 10:24 | NUR ---
CONTRAST ADMINISTERED VIA NG TUBE AT THIS TIME. TOLERATED WELL.
--- NOTE | 2019-06-23 10:45 | NUR ---
DISCHARGE PLAN CASE MANAGEMENT VISITED WITH PATIENT CONCERNING DISCHARGE PLAN AND NEEDS. LIVES AT HOME WITH SPOUSE. INDEPENDENT OF ADLS. WORKS DAILY AT [employer]. VERBALLY DENIES NEED FOR HOME OXYGEN, DME, AND OUTPATIENT SERVICES. HAS FINANCIAL ABILITY TO PAY FOR MEDICATIONS UPON DISCHARGE IF NEEDED. PCP IS DR. KEARNEY IN [place]. DISCHARGE PLAN IS TO DISCHARGE HOME WITH SPOUSE AND CONTINUE SELF CARE. CM WILL CONTINUE TO FOLLOW FOR DISCHARGE NEEDS.
[2019-06-23] MEDS: MORPHINE SULFATE IV PRN ×2 (11:51→19:35)
--- NOTE | 2019-06-23 13:29 | DIREP ---
PROCEDURE:XR ABDOMEN 2 VIEWS COMPARISON:[facility], CR, XRAY ABDOMEN SINGLE VW, 06/23/2019, 00:52 AM. [facility], CT, CT ABD/PELVIS W/ CONTRAST, 06/23/2019, 00:05 AM. INDICATIONS:SBO TECHNIQUE:Flat and upright views of the abdomen are provided. FINDINGS: BOWEL GAS PATTERN:Oral contrast opacifies the stomach, small bowel, and colon. No small bowel dilatation. Nasogastric catheter terminates within the stomach. CALCIFICATIONS:None significant. LUNG BASES:Clear. BONES:No acute osseus abnormality. OTHER:No additional findings. CONCLUSION: 1. No small bowel dilatation. Oral contrast opacifies the stomach, small bowel, and colon. 2. Nasogastric catheter terminates within the stomach. Dictated by: Brent Urias MD on 06/23/2019 at 01:27 PM
--- NOTE | 2019-06-23 16:29 | NUR ---
NG TUBE CLAMPED AT THIS TIME PER ORDERS FROM
--- NOTE | 2019-06-23 16:31 | NUR ---
NG TUBE OUTPUT FOR DAY SHIFT 06/23/2018 IS 1750
--- NOTE | 2019-06-23 16:46 | DIREP ---
PROCEDURE:XR ABDOMEN 2 VIEWS COMPARISON:None. INDICATIONS:PSBO TECHNIQUE:Flat and upright views of the abdomen are provided. FINDINGS: BOWEL GAS PATTERN:NG tube tip in the gastric antrum. Contrast is present in the colon. CALCIFICATIONS:None significant. LUNG BASES:Clear. BONES:Normal. OTHER:No additional findings. CONCLUSION:As contrast reaches the colon, there is no evidence of small bowel obstruction. Dictated by: Bhanu Patricio M.D. on 06/23/2019 at 04:41 PM
[2019-06-23] MEDS: CEPACOL SORE THROAT LOZENGE MM PRN (22:16)
[2019-06-23] MEDS: MUCINEX PO SCH (22:17)
[2019-06-23] MEDS ORDERED: TESSALON PERLE PO PRN (22:30)
--- NOTE | 2019-06-23 22:48 | CNH ---
DATE OF CONSULTATION: CHIEF COMPLAINT: Small-bowel obstruction secondary to incarcerated hernia. PRIMARY CARE PHYSICIAN: Dr. Lc Zaragoza in [place]. HISTORY OF PRESENT ILLNESS: This is a 48-year-old female who apparently has had multiple previous hernia repairs and lysis of adhesions, she had one 2 years ago. She apparently over the last month has been having some increasing periumbilical pain and presented to the ER after trying to reduce this at home without success. She had had some nausea and vomiting. In the ER, she had a CT scan that showed incarcerated. She was decompressed with NG tube and it was subsequently reduced by the Emergency Room physician. Since that time, she has been admitted to the Med/Surg floor. She has had her NG tube clamped. She has tolerated contrast and has a trial of clears now. She has no reported fever or chills at home. She is feeling much better now than she was in the middle of the night last night or even early this morning when I saw her. PAST MEDICAL HISTORY: Includes hypertension, previous headaches, muscle spasms. PAST SURGICAL HISTORY: Includes perforated colon in 2012, colostomy and subsequent reversal. She had a hernia repair in 2013 and again with lysis of adhesions in 2016. She also had an ovarian cyst removed in 2013. Apparently, she has also had a hysterectomy. ALLERGIES: Include BACTRIM. SOCIAL HISTORY: Positive for smoked tobacco. No reported alcohol or illicit drug use. HOME MEDICATIONS: Include Lexapro, gabapentin, fentanyl, Flexeril and metoprolol. FAMILY HISTORY: Essentially noncontributory for this evaluation. REVIEW OF SYSTEMS: ENDOCRINE: No known thyroid disease or diabetes. CARDIOVASCULAR: No chest pain or trouble breathing. PULMONARY: No dyspnea or cough. PHYSICAL EXAMINATION: GENERAL: This is an alert and oriented, appropriate, 48-year-old female in no acute distress. VITAL SIGNS: Last temperature is 98.3, pulse 106, respiratory rate 18, blood pressure 132/78. HEENT: Normocephalic, atraumatic. Pinckard mucous membranes. NECK: Supple and soft. Trachea is midline. She has no JVD or thyromegaly. HEART: Has regular rate and rhythm. LUNGS: Clear anteriorly bilaterally. ABDOMEN: The bowel sounds are positive and soft. Her tenderness was more significant on initial exam this morning. On repeat evaluation this afternoon, she has minimal tenderness. She reports some soreness in the left mid abdomen. EXTREMITIES: Show positive radial pulses bilaterally. NEUROLOGIC: She has no focal findings. Cranial nerves 2-12 are grossly intact. SKIN AND INTEGUMENT: Warm and dry. LABORATORY STUDIES: On admission were white count 18.4, hemoglobin 15.0, platelet count 312. Chemistry showed BUN of 11, creatinine 0.99, glucose 143. Lactic acid is 1.8. SURGICAL ASSESSMENT: 1. Partial small-bowel obstruction secondary to incarcerated ventral hernia. 2. Recurrent ventral hernia. 3. History of hypertension. 4. Obesity, BMI is 37.4. 5. History of tobacco use. PLAN: 1. The patient is seen and examined. Chart is reviewed. 2. Initially, she had NG tube decompression. Subsequently, she had contrast through the NG tube, which was noted to make it to the colon. She is currently on a trial of clear liquids. 3. I have discussed with the patient and her family the possible indications for emergency surgery versus the ideal situation where she will be allowed to discontinue tobacco use beyond optimized preoperative diet and exercise plan and have an abdominal reconstruction. She expresses understanding with this plan. Brando Bach DO DR: LILIAN/jeramy JOB# [id number] CC: Yaneth Bai MD
[2019-06-24] VITALS: BP 105/60
[2019-06-24] MEDS: CEPACOL SORE THROAT LOZENGE MM PRN (00:53)
[2019-06-24] MEDS: MORPHINE SULFATE IV PRN (00:53)
[2019-06-24] MEDS: NS 1000ML/KCL 20MEQ 1,000 ML IV SCH ×2 (01:08→11:22)
[2019-06-24 04:29] VITALS: BP 110/49
[2019-06-24 05:17] LABS: BASOPHIL % 0.7 % (0.0-0.2); EOSINOPHIL # 0.5 10^3/uL (0.0-0.2); EOSINOPHIL % 7.5 % (0.0-5.0); LYMPHOCYTES # 2.3 10^3/uL (1.0-4.8); LYMPHOCYTES % 36.9 % (24.0-44.0); MEAN CORP HGB 30.5 pg (26-34); MONOCYTES # 0.4 10^3/uL (0.3-0.8); MONOCYTES % 6.7 % (5.0-12.0); NEUTROPHIL # 2.9 10^3/uL (1.8-7.7); RED CELL DISTRIBUTION WIDTH 13.3 % (11.5-14.5)
[2019-06-24 05:31] LABS: CALCIUM 8.1 mg/dL (8.4-10.5); CARBON DIOXIDE 25.1 mmol/L (20.0-32)
--- NOTE | 2019-06-24 06:30 | NUR ---
Report Received report and assumed care of pt. Pt sitting in bed watching TV. No s/s of distress noted.
--- NOTE | 2019-06-24 07:30 | NUR ---
NG tube NG tube pulled by Dr. Bach. No s/s of distress noted.
[2019-06-24 08:28] VITALS: BP 137/78
[2019-06-24] MEDS: MUCINEX PO SCH (08:53)
[2019-06-24] MEDS: PROTONIX IV IV SCH (08:53)
[2019-06-24] MEDS: LOVENOX SQ SCH (08:54)
[2019-06-24] MEDS ORDERED: MAG-OX PO SCH (09:00)
[2019-06-24 11:20] VITALS: BP 125/82
--- NOTE | 2019-06-24 13:59 | NUR ---
DISCHARGE PLAN DR. DOWLING PHONED CM AND REQUESTED PATIENT TO FOLLOW UP WITH PCP-DR. KEARNEY TO GET REFERRAL FOR OUTPATIENT SCOPE. CM PHONED DR. KEARNEY'S OFFICE @ [phone]. HIS OFFICE IS CLOSED ON SATURDAY AFTERNOONS. CM NOTIFIED PATIENT OF NEED FOR REFERRAL FROM PCP AND PLACED PHONE NUMBERS TO BOTH DR. KEARNEY AND DR. DOWLING IN THE DISCHARGE PAPERWORK.
--- NOTE | 2019-06-24 14:37 | PRM.DC ---
Discharge Summary Date of Discharge: Jun 24, 2019 Time of Request to Discharge: 14:30 Reason for Visit: Abdominal pain, nausea, vomiting Hospital Course Patient admitted with partial bowel obstruction 2/2 incarcerated ventral hernia. Patient had successful reduction of hernia in ER with resolution of most symptoms. Patient had NGT placed for decompression of stomach. Patient was treated with IVF, IV antiemetics, and general surgery was consulted. Patient underwent serial abdominal imaging. Patient did have abdominal XR with contrast that showed resolution of partial bowel obstruction with contrast passing through to colon. Patient had trial of CLD and d/c of NGT. Patient was slowly advanced on diet and patient Leukocytosis resolved. She was pain free, ambulating well, tolerating diet. She was cleared by surgery to d/c to f/u with PCP/Surgery to f/u for outpatient ventral hernia repair. Patient was given strict return precautions and d/c instructions. Patient History: FH: arthritis 32 MOTHER FH: breast cancer G8 SISTER FH: rheumatoid arthritis G8 SISTER No known health problems G8 BROTHER G8 BROTHER 19 CHILD 19 CHILD General: Alert, Oriented X3, Cooperative, No acute distress HEENT: Atraumatic, PERRLA, EOMI, Mucous membr. moist/pink Neck: Supple, No JVD Lungs: Clear to auscultation, Normal air movement Heart: Regular rate, Normal S1, Normal S2 Abdomen: Normal bowel sounds, Soft, No tenderness Extremities: No edema, Normal pulses, No tenderness/swelling Skin: No rashes, No breakdown, No significant lesion Neuro: Normal gait, Normal speech, Strength at 5/5 X4 ext, Normal tone, Sensation intact, Cranial nerves 3-12 NL Psych/Mental Status: Mental status NL, Mood NL Scheduled Cyclobenzaprine Hcl (Flexeril), 1 TAB PO TID, (Reported) Escitalopram Oxalate (Escitalopram Oxalate), 1 TAB PO DAILY, (Reported) Gabapentin (Gabapentin), 1 CAP PO TID, (Reported) Metoprolol Succinate (Metoprolol Succinate), 1 TAB PO DAILY, (Reported) Ondansetron (Zofran Odt), 1 TAB SL Q8HR, (Reported) Scheduled PRN Acetaminophen With Codeine (Tylenol-Cod #4 Tablet), 1 EACH PO Q4H PRN for PAIN, (Reported) Dicyclomine Hcl (Dicyclomine Hcl), 20 MG PO PRN PRN for PAIN, (Reported) Promethazine Hcl (Phenergan), 25 MG PO PRN PRN for NAUSEA, (Reported) Discontinued Medications Omeprazole Magnesium (Omeprazole Magnesium), 20 MG PO DAILY, (Reported) Discontinued Reason: No Longer Taking Tramadol Hcl (Tramadol Hcl), 50 MG PO Q6, (Reported) Discontinued Reason: No Longer Taking Sepsis Evaluation @ Discharge Vital Sign - Last 24 Hours 06/22/19 06/22/19 06/22/19 06/22/19 22:02 22:02 22:02 23:07 Temp 98.1 98.1 98.1 98.1 Pulse 104 104 104 97 Resp 16 16 16 16 B/P (MAP) 164/73 (103) 153/88 (109) Pulse Ox 93 93 93 O2 Delivery Room Air Room Air 06/23/19 06/23/19 06/23/19 00:00 01:00 02:00 Temp 98.1 98.1 98.1 Pulse 102 101 102 Resp 16 16 16 B/P (MAP) 157/97 (117) 150/89 (109) 162/91 (114) Pulse Ox 92 92 93 O2 Delivery Room Air Room Air Room Air Laboratory Tests Test 06/22/19 22:20 06/22/19 22:30 White Blood Count 18.4 10^3/uL Red Blood Count 4.96 10^6/uL Hemoglobin 15.0 g/dL Hematocrit 44.6 % Mean Corpuscular Volume 89.9 fL Mean Corpuscular Hemoglobin 30.2 pg Mean Corpuscular Hemoglobin Concent 33.6 g/dL Red Cell Distribution Width 13.1 % Platelet Count 312 10^3/uL Mean Platelet Volume 9.8 fL Neutrophils (%) (Auto) 86.2 % Lymphocytes (%) (Auto) 8.5 % Monocytes (%) (Auto) 3.7 % Neutrophils # (Auto) 15.9 10^3/uL Lymphocytes # (Auto) 1.6 10^3/uL Monocytes # (Auto) 0.7 10^3/uL Absolute Immature Granulocyte (auto 0.04 10^3 u/L Absolute Eosinophils (auto) 0.2 10^3/uL Immature Granulocytes % 0.20 % Eosinophils % 1.1 % Basophils % 0.3 % Basophils # 0.1 10^3/uL Sodium Level 137 mmol/L Potassium Level 3.8 mmol/L Chloride Level 100.0 mmol/L Carbon Dioxide Level 23.5 mmol/L Anion Gap 17.3 Blood Urea Nitrogen 11 mg/dL Creatinine 0.99 mg/dL Estimated GFR () 71.8 Est GFR (CKD-EPI)(Non-Afr R[place]an) 59.4 BUN/Creatinine Ratio 11.0 Glucose Level 143 mg/dL Lactic Acid Level 1.8 mmol/L Calcium Level 9.9 mg/dL Total Bilirubin 0.4 mg/dL Aspartate Amino Transf (AST/SGOT) 26 U/L Alanine Aminotransferase (ALT/SGPT) 39 U/L Alkaline Phosphatase 108 U/L Total Protein 8.2 g/dL Albumin 4.3 g/dL Globulin 3.9 Amylase Level 37 U/L Lipase 104 U/L Urine Collection Type VOID Urine Color YELLOW Urine Appearance CLEAR Urine Bilirubin NEGATIVE MG/DL Urine Ketones NEGATIVE Urine Specific [place] 1.020 Urine pH 6 Urine Protein 30 mg/dL Urine Urobilinogen NORMAL Urine Nitrate NEGATIVE Urine Leukocyte Esterase NEGATIVE Urine Blood 50 2+ Urine RBC 0-2 RBC/HPF Urine WBC 2-5 WBC/HPF Urine Squamous Epithelial Cells FEW #/HPF Urine Bacteria NONE SEEN Urine Glucose NORMAL Current Medications Medications (Trade) Dose Ordered Sig/Prince PRN Reason Start Time Stop Time Status Last Admin Morphine Sulfate (Morphine Sulfate) 4 mg OT STAT 06/23/19 00:44 06/23/19 00:45 UNV 06/23/19 01:08 Promethazine HCl (Phenergan) 12.5 mg STAT STAT 06/23/19 00:44 06/23/19 00:45 UNV 06/23/19 01:08 Course Sepsis Screening Results: Posi: NEGATIVE Sepsis Qualifier/Stage: NO DEFINITE RISK Duration or Total Time Spent w: 45 Vitals & review Data Vital Sign - Last 24 Hours 06/22/19 06/22/19 06/22/19 06/22/19 22:02 22:02 22:02 23:07 Temp 98.1 98.1 98.1 98.1 Pulse 104 104 104 97 Resp 16 16 16 16 B/P (MAP) 164/73 (103) 153/88 (109) Pulse Ox 93 93 93 O2 Delivery Room Air Room Air 06/23/19 06/23/19 06/23/19 00:00 01:00 02:00 Temp 98.1 98.1 98.1 Pulse 102 101 102 Resp 16 16 16 B/P (MAP) 157/97 (117) 150/89 (109) 162/91 (114) Pulse Ox 92 92 93 O2 Delivery Room Air Room Air Room Air Laboratory Tests Test 06/22/19 22:20 06/22/19 22:30 White Blood Count 18.4 10^3/uL Red Blood Count 4.96 10^6/uL Hemoglobin 15.0 g/dL Hematocrit 44.6 % Mean Corpuscular Volume 89.9 fL Mean Corpuscular Hemoglobin 30.2 pg Mean Corpuscular Hemoglobin Concent 33.6 g/dL Red Cell Distribution Width 13.1 % Platelet Count 312 10^3/uL Mean Platelet Volume 9.8 fL Neutrophils (%) (Auto) 86.2 % Lymphocytes (%) (Auto) 8.5 % Monocytes (%) (Auto) 3.7 % Neutrophils # (Auto) 15.9 10^3/uL Lymphocytes # (Auto) 1.6 10^3/uL Monocytes # (Auto) 0.7 10^3/uL Absolute Immature Granulocyte (auto 0.04 10^3 u/L Absolute Eosinophils (auto) 0.2 10^3/uL Immature Granulocytes % 0.20 % Eosinophils % 1.1 % Basophils % 0.3 % Basophils # 0.1 10^3/uL Sodium Level 137 mmol/L Potassium Level 3.8 mmol/L Chloride Level 100.0 mmol/L Carbon Dioxide Level 23.5 mmol/L Anion Gap 17.3 Blood Urea Nitrogen 11 mg/dL Creatinine 0.99 mg/dL Estimated GFR () 71.8 Est GFR (CKD-EPI)(Non-Afr R[place]an) 59.4 BUN/Creatinine Ratio 11.0 Glucose Level 143 mg/dL Lactic Acid Level 1.8 mmol/L Calcium Level 9.9 mg/dL Total Bilirubin 0.4 mg/dL Aspartate Amino Transf (AST/SGOT) 26 U/L Alanine Aminotransferase (ALT/SGPT) 39 U/L Alkaline Phosphatase 108 U/L Total Protein 8.2 g/dL Albumin 4.3 g/dL Globulin 3.9 Amylase Level 37 U/L Lipase 104 U/L Urine Collection Type VOID Urine Color YELLOW Urine Appearance CLEAR Urine Bilirubin NEGATIVE MG/DL Urine Ketones NEGATIVE Urine Specific [place] 1.020 Urine pH 6 Urine Protein 30 mg/dL Urine Urobilinogen NORMAL Urine Nitrate NEGATIVE Urine Leukocyte Esterase NEGATIVE Urine Blood 50 2+ Urine RBC 0-2 RBC/HPF Urine WBC 2-5 WBC/HPF Urine Squamous Epithelial Cells FEW #/HPF Urine Bacteria NONE SEEN Urine Glucose NORMAL Current Medications Medications (Trade) Dose Ordered Sig/Prince PRN Reason Start Time Stop Time Status Last Admin Morphine Sulfate (Morphine Sulfate) 4 mg OT STAT 06/23/19 00:44 06/23/19 00:45 UNV 06/23/19 01:08 Promethazine HCl (Phenergan) 12.5 mg STAT STAT 06/23/19 00:44 06/23/19 00:45 UNV 06/23/19 01:08 LEVEL 1 SEPSIS INFECTION CRITE: Abdominal Pain LEVEL 2-SIRS (LIST ALL THAT AP: [id number] Cardiovascular Evidence: Not Assessed or None Hematologic Evidence: None/Not assessed Hepatic Evidence: None/Not assessed Metabolic Evidence: None/Not assessed Neurological Evidence: None/Not assessed Respiratory Evidence: None/Not assessed Renal Evidence: None/Not assessed O2 Sat by Pulse Oximetry: 94 Plan Discharge Date: Jun 24, 2019 Dicharge DX: partial bowel obstruction 2/2 incarcerated ventral hernia Discharge Disposition: Stable Plan ok to d/c to home self care medications: per med rec list Diet: soft/bland Activity: no heavy lifting, no strenuous activity until cleared by surgery F/U with PCP/Surgery. Patient will need referral from PCP prior to outpatient f/u. Return to care for worsening/concerning symptoms ALVERTO SHI MD Jun 24, 2019 14:37
--- NOTE | 2019-06-24 15:00 | NUR ---
Discharge Discharge instructions given to pt. Educated pt on importance of follow up with Dr. Bach. Pt able to verbalize understanding. Educated pt on reportable s/s. Pt able to verbalize understanding. Educated pt on continuing home medications as doing prior to admission. Pt able to verbalize understanding. Answered all pt questions. Pt denies further questions or concerns. Removed IV. No bleeding, redness, or tenderness noted. Covered site with cotton ball and band aid. Transferred off unit ambulating to personal vehicle. No s/s of distress noted.
[2019-06-24 15:02] VITALS: BP 125/82
== END 2019-06-24 15:08 | disposition home or self-care (01) | DRG 395 ==
LOC: EDBD 21:56 → ER 21:56 → MS 06-23 03:20
PROVIDERS: ADMIT Pediatrics; ATTEND Pediatrics
PROC: 0D9670Z Drainage of Stomach with Drainage Device, Via Natural or Artificial Opening (ICD-10-PCS; principal; 2019-06-23)
DX: K43.0 Incisional hernia with obstruction, without gangrene (principal); D72.829 Elevated white blood cell count, unspecified; F32.9 Major depressive disorder, single episode, unspecified; I10 Essential (primary) hypertension; E66.9 Obesity, unspecified; Z80.3 Family history of malignant neoplasm of breast; Z90.710 Acquired absence of both cervix and uterus; Z90.49 Acquired absence of other specified parts of digestive tract; Z79.899 Other long term (current) drug therapy; Z88.1 Allergy status to other antibiotic agents; Z87.891 Personal history of nicotine dependence; Z68.37 Body mass index [BMI] 37.0-37.9, adult; Z82.61 Family history of arthritis
CPT/HCPCS: 36415; 74018; 74019; 74177; 80053; 81000; 82150; 83605; 83690; 83735; 85025; 99285; C9113; G0378; J1170; J1650; J2001; J2250; J2270; J2405; J2550; J2710; J3010; J3490; J7030; J7050; Q9963; Q9965

== ENCOUNTER 2019-07-10 11:55 | Inpatient (IN) | payer BC ==
[~2019-07-10] VITALS: Ht 167.6 cm; Wt 111.1 kg
[~2019-07-10 11:55] MED LIST changes: +ACET1TAB38 PO; +DICY20TA3 PO; +GABA300C10 PO; +METO-237 PO; +PROM25AM6 PO
[2019-07-14] MEDS ORDERED: TRAM50TA PO (14:29)
[2019-07-14] MEDS ORDERED: PROM25TA10 PO (14:29)
[2019-07-14] MEDS ORDERED: OMEP20TA9 PO (14:29)
[2019-07-14 14:38] VITALS: BP 137/60
[2019-07-14] MEDS ORDERED: MOVIPREP POWDER PACKET PO STA (14:54)
--- NOTE | 2019-07-14 14:57 | PCM.EKG ---
[facility] Test Date: 2019-07-14 Test Time: 14:50:52 Pat Name: AASHISH WEBB Department: Room: Gender: F [employer]moving [employer] Operator: MARYELLEN : 1970 Requested By: JALEN BRIONES Order Number: [id number] Reading MD: Measurements Intervals [place] Rate: 86 P: 41 MT: 150 QRS: 4 QRSD: 76 T: 43 QT: 390 QTc: 466 Interpretive Statements Normal sinus rhythm Normal ECG No previous ECG available for comparison Please click the below link to view image of tracing.
[2019-07-14 15:19] LABS: BASOPHIL % 0.4 % (0.0-0.2); EOSINOPHIL # 0.2 10^3/uL (0.0-0.2); EOSINOPHIL % 2.4 % (0.0-5.0); LYMPHOCYTES # 2.57 10^3/uL1 (1.0-4.8); LYMPHOCYTES % 26.5 % (24.0-44.0); MEAN CORP HGB 30.2 pg (26-34); MONOCYTES # 0.5 10^3/uL (0.3-0.8); MONOCYTES % 5.4 % (5.0-12.0); NEUTROPHIL # 6.3 10^3/uL (1.8-7.7); NEUTROPHILS % 65.1 % (41.0-85.0); PLATELET COUNT 273 10^3/uL (150-400); RED CELL DISTRIBUTION WIDTH 12.9 % (11.5-14.5)
[2019-07-14 15:41] LABS: CALCIUM 8.9 mg/dL (8.4-10.5); CARBON DIOXIDE 27.4 mmol/L (20.0-32)
[2019-07-15] MEDS ORDERED: MEFOXIN ONE (14:21)
[2019-07-15] MEDS ORDERED: NS 100ML 100 ML IV ONE (14:21)
[2019-07-16] VITALS (23 sets, daily range): BP systolic 104–151; BP diastolic 53–97
[2019-07-16] MEDS ORDERED: DUO 0.5-3(2.5) MG/3 ML IH ONE (07:00)
[2019-07-16] MEDS ORDERED: TYLENOL PO ONE (07:00)
[2019-07-16] MEDS ORDERED: LOVENOX SQ ONE (07:00)
[2019-07-16] MEDS ORDERED: CELEBREX PO ONE (07:00)
[2019-07-16] MEDS: LACTATED RINGERS 1,000 ML IV SCH ×4 (07:09→20:20)
[2019-07-16] MEDS ORDERED: EXPAREL 266 MG/20 ML VIAL IJ ONE (08:44)
[2019-07-16] MEDS ORDERED: ZEMURON IV ONE ×3 (09:20→21:16)
[2019-07-16] MEDS ORDERED: LIDOCAINE 2% VIAL ONE (09:20)
[2019-07-16] MEDS ORDERED: DIPRIVAN IV ONE (09:20)
[2019-07-16] MEDS ORDERED: QUELICIN ONE (09:20)
[2019-07-16] MEDS ORDERED: NEOSTIGMINE ONE (09:22)
[2019-07-16] MEDS ORDERED: ZOFRAN ONE (09:22)
[2019-07-16] MEDS ORDERED: NS 100ML 100 ML IV ONE ×2 (09:22→16:00)
[2019-07-16] MEDS ORDERED: SENSORCAINE 0.5% VIAL ONE (09:22)
[2019-07-16] MEDS ORDERED: DECADRON ONE (09:22)
[2019-07-16] MEDS ORDERED: TORADOL ONE ×2 (09:22→21:46)
[2019-07-16] MEDS ORDERED: DILAUDID ONE ×2 (09:23→17:41)
[2019-07-16] MEDS ORDERED: VERSED ONE (09:23)
[2019-07-16] MEDS ORDERED: EPHEDRINE SULFATE ONE (09:23)
[2019-07-16] MEDS ORDERED: SUBLIMAZE ONE (09:23)
[2019-07-16] MEDS ORDERED: GENTAMICIN 80 MG/NS 100 ML PB 100 ML IV ONE (10:26)
[2019-07-16] MEDS ORDERED: WATER ONE ×2 (10:27→14:58)
[2019-07-16] MEDS ORDERED: BUMINATE 25% 100 ML IV ONE (15:01)
[2019-07-16] MEDS ORDERED: MEFOXIN ONE (16:00)
[2019-07-16] MEDS ORDERED: BRIDION IV ONE (16:53)
[2019-07-16] MEDS ORDERED: PHENERGAN IV PRN ×2 (18:00)
[2019-07-16] MEDS ORDERED: LACTATED RINGERS 1,000 ML SCH (18:00)
[2019-07-16] MEDS ORDERED: REGLAN IV PRN (18:00)
[2019-07-16] MEDS ORDERED: SUBLIMAZE IV PRN (18:00)
[2019-07-16] MEDS ORDERED: DILAUDID IV PRN (18:00)
[2019-07-16] MEDS ORDERED: MORPHINE SULFATE IV PRN (18:00)
[2019-07-16] MEDS: DEMEROL IV PRN ×2 (18:07→18:42)
--- NOTE | 2019-07-16 19:00 | NUR ---
Patient arrived to unit Patient arrived to unit via stretcher, accompanied by Abdiel Carrillo Received report assumed care of patient.
[2019-07-16 19:23] LABS: BASOPHIL % 0.2 % (0.0-0.2); LYMPHOCYTES # 0.51 10^3/uL1 (1.0-4.8); LYMPHOCYTES % 4.1 % (24.0-44.0); MEAN CORP HGB 30.2 pg (26-34); MONOCYTES # 0.4 10^3/uL (0.3-0.8); MONOCYTES % 3.6 % (5.0-12.0); NEUTROPHIL # 11.3 10^3/uL (1.8-7.7); PLATELET COUNT 238 10^3/uL (150-400); RED CELL DISTRIBUTION WIDTH 13.1 % (11.5-14.5)
[2019-07-16 19:40] LABS: CARBON DIOXIDE 24.1 mmol/L (20.0-32)
[2019-07-16] MEDS: MORPHINE SULFATE IV PRN ×2 (20:04→23:00)
[2019-07-16 20:20] LABS: SEGMENTED NEUTROPHILS 93 % (31-76)
[2019-07-16 20:21] LABS: LYMPHOCYTE 4 % (25-36); MONOCYTE 3 % (3-9)
--- NOTE | 2019-07-16 20:37 | OPH ---
DATE OF SURGERY: 07-16-2019. PREOPERATIVE DIAGNOSES: 1. Recurrent incarcerated incisional hernia x 3. 2. History of reflux. 3. History of hypertension. POSTOPERATIVE DIAGNOSES: 1. Recurrent incarcerated incisional hernia x 3. 2. Extensive intra-abdominal adhesions. 3. Small bowel enterotomy. 4. Small bowel seromuscular injury. SURGEON: Brando Bach D.O, MICA LAMINATING MACHINE FEEDER: OR staff. ANESTHESIA: General by Freida Martinez CRNA plus intraoperative bilateral QL block. PROCEDURES PERFORMED: 1. Exploratory laparotomy with extensive lysis of adhesions x 3 hours. 2. Bilateral fasciocutaneous flap advancement with retrorectus dissection. 3. Repair of small bowel injury. 4. Excision of cicatrix. SPECIMENS: 1. Cicatrix. 2. Small portion of small bowel to pathology. ESTIMATED BLOOD LOSS: 91 mL for this case. INTRAVENOUS FLUID: 5300 mL. URINE OUTPUT: 575 mL. COUNTS: At the completion of the case, the counts were correct per OR staff. DESCRIPTION OF PROCEDURE: The patient is a 48-year-old female, known from previous evaluation and procedure. Prior to procedure, informed consent was obtained. At time of procedure, she was taken to the operative suite and placed in supine position. After time-out, general anesthesia was obtained. Bilateral QL block was provided by the Department of Anesthesia. Laboy catheter was inserted by the nursing service and her abdomen was prepped and draped. An existing scar identified on the abdomen is incised to remove using electrocautery. Electrocautery was used completely to dissect down to level of fascia. Superior portion of the incision and the inferior portion of the incision defects were encountered in the right mid abdomen, the upper mid abdomen and in the left side inferior to the umbilicus. To allow better exposure, the plane anterior to the fascia was slightly opened. Once the peritoneal cavity was identified, the planes proved to be noticeably obscured by the amount of adhesions identified. In attempts to mobilize the anterior abdominal wall from the visceral organs, an enterotomy was created in the small bowel, which was initially mobilized to allow exposure, loosely approximated with Vicryl sutures and silk sutures and later repaired. Extensive adhesions were identified in the abdomen. These were addressed from the mid portion superiorly and subsequently inferiorly and then to both lateral aspects. It was noted that the liver and the transverse colon adhesed to the anterior abdominal wall. The identified adhesions were divided with a combination of blunt dissection and sharp dissection with electrocautery. After near complete mobilization of the small bowel from the ligament of Treitz distally to the level of the ileocecal valve, there was a portion with some retained quoc from previous surgery that was identified. The bowel was directly adhered to the bowel causing a point of obstruction and it was released using electrocautery and sharp dissection. Small seromuscular injury was identified and was repaired with interrupted 3-0 GI silks. There was another portion of small bowel with adhesion to the posterior mesentery that has internal hernia associated. This was released using electrocautery. After complete mobilization of the small bowel was accomplished, the cecum was inspected as well as the right colon. There was noted to be a noticeable decrease in the volume of her omentum from previous operations. In the Right upper quadrant there were no signs of gallstones or significant inflammation in the gallbladder. The liver had some adhesions consistent with previous operation. In the anterior abdominal wall in the left upper quadrant, the liver is adhesed to the anterior abdominal wall. This was divided using electrocautery. Once there was adequate mobilization of the visceral organs, the fascia was inspected on the left side and the peritoneum was freed from the fascia or attachments medially to allow dissection to the rectus bundles and subsequently the retrorectus dissection was accomplished on the left side. After this process was completed, it was accomplished on the right side as well. The previously described defect that appears to be almost complete transection , it was subsequently repaired with a [id number] repair using a 75 mm SARIKA stapler. The ensuing defect was loosely approximated with 3-0 GI silks and closed with second staple load. The staple load closing enterotomy was oversewed using interrupted 3-0 GI silks. After this repair was completed, the repair was tested and noted to be widely patent and had no signs of leak. This was again repeated later during the procedure. The abdominal wall was inspected and noted there was not adequate advancement on both sides. Subsequently, the retrorectus dissection was extended to the level of the lateral attachments to the bundles on both sides. To allow mobilization of the fascia, the plane anterior to the fascia was mobilized on both sides. Prior to closure of the peritoneum, the visceral organs were again inspected. The NG tube was placed by Department of Anesthesia, confirmed to be in appropriate location. There was noted to be some edema encountered in the bowel, likely secondary to manipulation, associated with extensive dissection. After final inspection was made, the abdomen was closed in layers. Prior to closure of the peritoneum the abd cavity was irrigated with Gentamicin and sterile water. The peritoneum was closed with a combination of looped PDS from the inferior apex to midportion as there was a moderate defect in the left side of the mid abdomen, the hernia sac from the right mid abdomen was used and was brought together with a combination of running and interrupted sutures to repair this defect. Prior to complete closure of the peritoneum, 2 pieces of Seprafilm were brought onto the field and cut, placed in the abdominal cavity and the peritoneum was repaired from superior apex to the mid portion as well. Once the peritoneum was completely closed, superior and inferior portions of the fascia freed to be fairly strong and the superior and inferior apex were each repaired with interrupted PDS sutures in a [id number] fashion. Next the pre- peritoneal space was irrigated with sterile water and the mid portion of the abdomen, the umbilical stalk has been amputated to allow exposure of the fascia and it appears that the right-sided defect is near to the umbilicus, left-sided defect is slightly to the left upper aspect. These portions of the fascia are unclear if they will easily be brought to the midline. Subsequently, a piece of Phasix ST is placed deep to the fascia, but anterior to the peritoneum and secured with interrupted PDS sutures. The fascia was then repaired with advancing of the flaps to allow for an interrupted repair using PDS sutures. In the superior half of the abdomen where there was a previously described defect and a piece of Phasix ST also 7 x 10 cm was placed in an underlay fashion to the fascia. It was anterior to the peritoneum. The Phasix was secured with interrupted PDS sutures and the fascia was repaired with interrupted PDS sutures. Prior to complete closure of the fascia, a drain was passed into the left lower quadrant, put deep to the fascia. After the fascia was closed, a drain was passed into the right lower quadrant, placed anterior to the fascia. After the repair was completed and inspected, there was noted to be good approximation of the tissues with no significant tension identified. There were 2 small portions of Phasix ST mesh that were placed in an underlay fashion. There appeared to be in appropriate approximatio. Next, the incision was copiously irrigated prior to closure and subsequently closure was completed. The drain was secured with a nylon suture. The umbilical stalk was reapproximated with 2-0 Vicryl to the fascia. The subcutaneous of the large incision was loosely approximated with 2-0 Vicryl and skin was closed with stainless steel surgical clips. Dressings were applied. Drapes were removed. The patient appeared to tolerate the procedure well. There were no acute complications noted. At this time, she is in recovery room. Brando Bach DO DR: LILIAN/jeramy JOB# [id number] CC: Dr. Aries VAZQUEZ
[2019-07-16] MEDS ORDERED: APRESOLINE ONE (21:15)
--- NOTE | 2019-07-16 21:15 | NUR ---
at bedside assessing patient condition.
[2019-07-16] MEDS ORDERED: CEPACOL SORE THROAT LOZENGE MM PRN (21:30)
[2019-07-16] MEDS ORDERED: PIGGYBACK IV ONE (21:35)
[2019-07-16] MEDS ORDERED: MEFOXIN IV ONE (21:35)
[2019-07-16] MEDS: MEFOXIN IV SCH (21:43)
[2019-07-16] MEDS: PIGGYBACK IV SCH (21:43)
[2019-07-16] MEDS: TORADOL IV PRN (21:50)
[2019-07-17] VITALS (42 sets, daily range): BP systolic 90–126; BP diastolic 41–81
[2019-07-17] MEDS: LACTATED RINGERS 1,000 ML IV SCH ×4 (02:26→22:44)
[2019-07-17] MEDS: MORPHINE SULFATE IV PRN ×3 (02:27→16:14)
[2019-07-17 04:51] LABS: BASOPHIL % 0.2 % (0.0-0.2); EOSINOPHIL # 0.1 10^3/uL (0.0-0.2); EOSINOPHIL % 0.5 % (0.0-5.0); LYMPHOCYTES # 1.18 10^3/uL1 (1.0-4.8); LYMPHOCYTES % 9.3 % (24.0-44.0); MEAN CORP HGB 30.8 pg (26-34); MONOCYTES # 0.8 10^3/uL (0.3-0.8); NEUTROPHIL # 10.7 10^3/uL (1.8-7.7); NEUTROPHILS % 83.9 % (41.0-85.0)
[2019-07-17 05:04] LABS: CALCIUM 8.3 mg/dL (8.4-10.5); CARBON DIOXIDE 27.5 mmol/L (20.0-32)
[2019-07-17] MEDS: GENASYME PO PRN ×2 (05:14→16:06)
[2019-07-17] MEDS ORDERED: MEFOXIN IV ONE (05:17)
[2019-07-17] MEDS ORDERED: PIGGYBACK IV ONE (05:17)
[2019-07-17] MEDS: MEFOXIN IV SCH ×3 (05:21→22:43)
[2019-07-17] MEDS: PIGGYBACK IV SCH ×3 (05:21→22:43)
[2019-07-17] MEDS: DILAUDID IV PRN ×4 (06:28→21:41)
[2019-07-17] MEDS ORDERED: MAGNESIUM SULFATE 50 ML IV ONE ×4 (06:30→18:53)
[2019-07-17] MEDS ORDERED: LOVENOX SQ SCH (07:30)
--- NOTE | 2019-07-17 07:45 | NUR ---
Ambulation Pt ambulating hallway x1 with staff using standby assistance. Steady gait noted, pt reports feeling slight dizziness. Pt ambulated back to room and assisted to chair. Call light and table within reach. Will continue to monitor.
[2019-07-17] MEDS ORDERED: TORADOL ONE ×2 (07:52→17:18)
[2019-07-17] MEDS: TORADOL IV PRN ×2 (07:58→17:18)
--- NOTE | 2019-07-17 08:15 | NUR ---
Dr. Isreal Bach at bedside. Updated on intake and output. Pt requesting sprite, new order received to give pt sprite. RBVO.
[2019-07-17] MEDS ORDERED: WATER 20 ML ONE (08:41)
[2019-07-17] MEDS ORDERED: WATER ONE ×2 (08:41→18:45)
[2019-07-17] MEDS: LOVENOX SQ SCH (08:51)
[2019-07-17] MEDS ORDERED: PROTONIX IV IV SCH (09:00)
--- NOTE | 2019-07-17 09:00 | NUR ---
Ambulation Patient ambulated ICU hallway x2.
--- NOTE | 2019-07-17 12:12 | NUR ---
Post-op day 1 follow-up for bilateral quadratus lumborum block. V/s stable. Pt has been up and ambulated twice this am and has sat in chair. Pt states she began to feel pain on right side last night and on left side this morning around 0900. Pt states the pain feels like gas pain. Pt states midline incision is a little sore but not bad. Pt states no questions or concerns.
--- NOTE | 2019-07-17 12:21 | NUR ---
DISCHARGE PLAN CASE MANAGEMENT VISITED WITH PATIENT CONCERNING DISCHARGE PLAN AND NEEDS. LIVES AT HOME WITH SPOUSE. WAS INDEPENDENT PRIOR TO THIS HOSPITALIZATION. 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 VERBALLY DENIES NEED FOR DME, HOME O2, OR OUTPATIENT SERVICES. HAS FINANCIAL ABILITY TO PAY FOR MEDICATIONS UPON DISCHARGE DISCHARGE. HER PCP IS DR. KEARNEY. DISCHARGE PLAN IS TO DISCHARGE HOME WITH SPOUSE AND CONTINUE SELF CARE. CM WILL CONTINUE TO FOLLOW FOR DISCHARGE NEEDS.
--- NOTE | 2019-07-17 12:30 | NUR ---
ARRIVAL PT ARRIVED FROM ICU TO ROOM 305 AT THIS TIME. REPORT RECEIVED FROM Jaja BECKWITH RN AND ASSUMED CARE OF PT.
[2019-07-17] MEDS ORDERED: LACTATED RINGERS 1,000 ML ONE (12:48)
--- NOTE | 2019-07-17 14:10 | HPH ---
ADMIT DATE: 07/16/2019 CHIEF COMPLAINT: Abdominal hernia HISTORY OF PRESENT ILLNESS: This is a 48-year-old female who has a past medical history significant for: 1. Hypertension. 2. Morbid obesity. 3. Ventral hernia with recurrent small-bowel obstruction due to her ventral hernia. The patient was evaluated during previous admission by Dr. Bach for surgery and she did have multiple surgeries in the past on her abdomen and the patient had her hernia repaired and she had also lysis to her adhesions. Due to multiple previous surgeries, the surgery time was long and the patient was admitted postoperatively to the ICU for close observation and the patient was admitted to my service due to her previous medical issue of hypertension and morbid obesity. PAST MEDICAL HISTORY: Significant for: 1. Hypertension. 2. GERD. 3. Anxiety. 4. Morbid obesity. HOME MEDICATIONS: The patient takes the following medications at home: 1. Tylenol No. 4 p.r.n. 2. Flexeril 10 mg t.i.d. p.r.n. 3. Dicyclomine 20 mg q. 4 p.r.n. 4. Escitalopram 20 mg daily. 5. Gabapentin 300 mg t.i.d. 6. Metoprolol succinate 50 mg daily. 7. Omeprazole 20 mg tablet daily. 8. Tramadol 50 p.r.n. ALLERGIES: THE PATIENT IS ALLERGIC TO SULFA DRUGS. SOCIAL HISTORY: The patient smokes 1 cigarette a day. She does not drink alcohol or use any illicit drugs. FAMILY HISTORY: Reviewed and negative. REVIEW OF SYSTEMS: Fourteen systems reviewed with the patient, all were negative except for what has been mentioned above. PHYSICAL EXAMINATION: VITAL SIGNS: Temperature 98.4, pulse 77, respirations 106/71, O2 sat 97% on room air. HEENT: Pupils reactive. Conjunctivae intact. Sclerae are anicteric. Nares patent. Earlobes intact. Throat clear. NECK: No JVD. No thyromegaly, no bruits, no lymphadenopathy, no masses, no tracheal deviation. HEART: Regular rhythm. No murmur, no gallop. CHEST: Clear. No rales, no crackles. Breath sounds are audible on both sides. ABDOMEN: Soft. No hepatosplenomegaly, no organomegaly. Bowel sounds active, no tenderness. EXTREMITIES: No cyanosis, clubbing or edema. LABORATORY DATA: White blood cells 12.7; hemoglobin 10.4, status post surgery; hematocrit 31.3; platelets 222. Chemistry: Sodium 139, potassium 4, chloride 106, CO2 27.5, anion gap 9.5, the glucose 121, calcium 8.3, magnesium 1.5, AST 39, ALT 41, total protein 5.9, albumin 3.2, globulin 2.7. The coagulation profile within normal limits. DIAGNOSES: 1. Status post abdominal surgery for ventral hernia and recurrent small-bowel obstruction with multiple surgeries in the past with adhesions. 2. Hypertension. 3. Morbid obesity. 4. Gastroesophageal reflux disease. 5. Anxiety/depression. MANAGEMENT: Once the patient has her NG tube out, we will restart her depression medications and I am going to give the patient Protonix IV for now. We will follow lab results and electrolytes and monitor closely. HAYLEE SHARPE MD DR: JADEN/jeramy JOB# [id number]
[2019-07-17] MEDS ORDERED: MAGNESIUM SULFATE 100 ML IV ONE (14:18)
[2019-07-17] MEDS ORDERED: MORPHINE SULFATE IV PRN (15:00)
[2019-07-17] MEDS: BACID PO SCH (17:51)
--- NOTE | 2019-07-17 18:42 | NUR ---
STATUS CHANGE PT REQUEST NURSE TO CHECK TEMP. TEMP 100.2. V/S OBTAINED. PULSE 114; BP 110/51; SPO2 91% ON 2LPM PER NC. DR DOWLING NOTIFIED OF CHANGE. ORDERS RECEIVED TO ADMINISTER NORCO AT THIS TIME AND RECHECK IN 1 HOURS. PARKS AND RECREATION WORKER WILL BE NOTIFIED OF CHANGES AND NEW ORDERS.
[2019-07-17] MEDS: NORCO 5MG PO PRN (18:58)
[2019-07-17] MEDS ORDERED: BENTYL PO PRN (20:30)
[2019-07-17] MEDS ORDERED: FLEXERIL PO PRN (20:30)
[2019-07-17] MEDS ORDERED: NEURONTIN PO PRN (20:30)
[2019-07-17] MEDS: MAG-OX PO SCH (21:40)
[2019-07-18 01:00] VITALS: BP 128/64
[2019-07-18] MEDS: MORPHINE SULFATE IV PRN (01:17)
[2019-07-18] MEDS: GENASYME PO PRN ×3 (03:09→22:26)
[2019-07-18] MEDS ORDERED: TORADOL ONE ×2 (04:28→12:17)
[2019-07-18] MEDS: DILAUDID IV PRN ×3 (04:31→16:01)
[2019-07-18] MEDS: TORADOL IV PRN ×2 (04:31→12:44)
--- NOTE | 2019-07-18 05:20 | NUR ---
UPDATE ADMINISTERED GASTROPGRAFIN THROUGH NG TUBE AND FLUSHED WITH WATER. CLAMPED NG TUBE AND FLUSHED WITH WATER. DR DOWLING NEEDS TO BE CONTACTED IF PATIENT EXPERIENCES NAUSEA.
--- NOTE | 2019-07-18 05:32 | PNH ---
DATE: BRIEF FOLLOWUP VISIT SUBJECTIVE: This is a 48-year-old female, in no acute distress, seen initially in her room in the ICU and subsequently on Med/Surg floor. She has been ambulating today. She is tolerating ice chips with NG tube. OBJECTIVE: VITAL SIGNS: Last temperature is 98.4, pulse 77, respiratory rate of 14, blood pressure 106/71. ABDOMEN: The bowel sounds are positive. She has tenderness associated with the incision and lateral to the midline. Drain outputs are moderate. She had approximately 195 from the one on the left and 130 from one on the right. LABORATORY DATA: Today show white count 12.7, hemoglobin 10.4, platelet count is 222. Chemistry today shows BUN of 7, creatinine 0.96. Potassium is 4.0. Her magnesium is low at 1.5, AST is 39. SURGICAL ASSESSMENT: 1. Postoperative day #1, exploratory laparotomy with extensive lysis of adhesions and stapled repair of enterotomy. 2. Postoperative day #1, bilateral retrorectus dissection with fasciocutaneous flap advancement for hernia repair x 3. 3. History of hypertension. PLAN: 1. The patient is seen and examined. Chart is reviewed. 2. She has been admitted to the Med/Surg floor. Laboy catheter was discontinued. We will plan for x-ray in a.m. after giving contrast via the NG tube. Brando Bach DO DR: LILIAN/jeramy JOB# [id number] CC: Dr. EMILY SHARPE MD
[2019-07-18 05:41] LABS: BASOPHIL % 0.2 % (0.0-0.2); EOSINOPHIL # 0.5 10^3/uL (0.0-0.2); EOSINOPHIL % 5.3 % (0.0-5.0); LYMPHOCYTES # 1.27 10^3/uL1 (1.0-4.8); LYMPHOCYTES % 14.4 % (24.0-44.0); MEAN CORP HGB 30.1 pg (26-34); MONOCYTES # 0.5 10^3/uL (0.3-0.8); MONOCYTES % 5.3 % (5.0-12.0); NEUTROPHIL # 6.6 10^3/uL (1.8-7.7); NEUTROPHILS % 74.7 % (41.0-85.0); RED CELL DISTRIBUTION WIDTH 13.4 % (11.5-14.5)
[2019-07-18] MEDS: LACTATED RINGERS 1,000 ML IV SCH ×3 (05:55→16:02)
[2019-07-18] MEDS: MEFOXIN IV SCH (05:57)
[2019-07-18] MEDS: PIGGYBACK IV SCH (05:57)
[2019-07-18 06:01] LABS: CALCIUM 7.9 mg/dL (8.4-10.5); CARBON DIOXIDE 27.5 mmol/L (20.0-32)
[2019-07-18 06:31] VITALS: BP 115/62
[2019-07-18 07:22] VITALS: BP 110/54
[2019-07-18] MEDS ORDERED: KCL 20MEQ/100ML 100 ML IV ONE (07:29)
[2019-07-18] MEDS: BACID PO SCH ×3 (07:36→16:32)
[2019-07-18] MEDS ORDERED: NS 500ML 500 ML IV ONE (07:41)
[2019-07-18] MEDS ORDERED: PROTONIX IV IV SCH (09:00)
--- NOTE | 2019-07-18 09:26 | DIREP ---
PROCEDURE:XR ABDOMEN 2 VIEWS COMPARISON:[facility], CR, XRAY ABDOMEN 2VW, 06/23/2019, 03:56 PM. INDICATIONS:Ileus TECHNIQUE:Flat and upright views of the abdomen are provided. FINDINGS: BOWEL GAS PATTERN:Contrast seen within the colon. Gas pattern nonspecific without obstructive pattern seen. Midline skin quoc overlie the abdomen.. CALCIFICATIONS:None significant. LUNG BASES:Clear. BONES:Normal. OTHER:Nasogastric tube subdiaphragmatic with tip projecting from the gastric pylorus versus 1st portion the duodenum. 3 abdominal drains incidentally noted. CONCLUSION: 1. Nasogastric tube. 2. Multiple abdominal drains. 3. Nonspecific gas pattern. Dictated by: Nate Toscano M.D. on 07/18/2019 at 09:23 AM
[2019-07-18] MEDS: LOVENOX SQ SCH (09:50)
[2019-07-18] MEDS: TOPROL XL PO SCH (09:51)
[2019-07-18] MEDS: FIBERCON PO SCH (09:51)
[2019-07-18] MEDS ORDERED: KLOR-CON 10 PO SCH ×2 (10:00→20:00)
[2019-07-18] MEDS: TRIPLE ANTIBIOTIC OINTMENT TP SCH ×2 (10:30→20:46)
[2019-07-18] MEDS: NORCO 5MG PO PRN ×3 (10:49→22:26)
[2019-07-18] MEDS: MAG-OX PO SCH ×2 (11:30→20:46)
[2019-07-18 12:47] VITALS: BP 105/52
[2019-07-18] MEDS: KEFLEX PO SCH ×2 (15:47→20:46)
[2019-07-18 15:53] VITALS: BP 109/61
[2019-07-18 19:31] VITALS: BP 109/57
--- NOTE | 2019-07-18 22:25 | PNH ---
DATE: SUBJECTIVE: A 48-year-old female in no acute distress, seen in her room. She has had no nausea with her NG tube clamped. She has tolerated some clears. OBJECTIVE: VITAL SIGNS: Last temperature 98.1, pulse 100, respiratory rate 16, blood pressure 110/54. ABDOMEN: The bowel sounds are positive and soft. She has tenderness in the lateral aspect, minimal tenderness in the midline. LABORATORY DATA: Today show white count 8.8, hemoglobin 9.1, platelet count is 201. Chemistry today shows potassium is 3.1, BUN is 3, creatinine 0.86. ASSESSMENT: 1. Status post exploratory laparotomy with extensive lysis of adhesions as well as bilateral retrorectus dissection with primary hernia repair and mesh underlay. 2. History of hypertension. PLAN: 1. The patient is seen and examined. Her chart is reviewed. 2. Her x-ray is reviewed from this morning and her NG tube has been removed. 3. The patient has been started on clear liquids trying to reduce her number of IV meds and transitioned to p.o. meds. We will increase her diet and activity as tolerated. Brando Bach DO DR: LILIAN/jeramy JOB# [id number] CC: GALE SHARPE MD
--- NOTE | 2019-07-18 23:24 | PNH ---
DATE: 07/18/2019 ROOM #: [id number] SUBJECTIVE: The patient is stable. NG tube was removed. PHYSICAL EXAMINATION: VITAL SIGNS: Temperature 98.4, pulse 100, respirations 17, blood pressure 105/52, O2 sat 95% on room air. HEART: Regular rhythm. CHEST: Clear. ABDOMEN: Soft. EXTREMITIES: No cyanosis, clubbing or edema. LABORATORY DATA: CBC: White count 8.8, hemoglobin 9.1, hematocrit 28.6, and platelet is 201. Chemistry: Sodium 140, potassium 3.1, chloride 104, carbon dioxide 27, anion gap 11.6, BUN 3, creatinine 0.86, the glucose 128, magnesium 2.3, phosphorus 3.2. DIAGNOSES: 1. Status post abdominal surgery for ventral hernia 2. Hypertension. 3. Morbid obesity. 4. Gastroesophageal reflux disease. 5. Anxiety/depression. 6. Hypokalemia. MANAGEMENT: We will continue with her home medications and we will consider discharging the patient once she is surgically cleared. HAYLEE SHARPE MD DR: JADEN/jeramy JOB# [id number]
[2019-07-19] MEDS: NORCO 5MG PO PRN ×3 (03:28→11:29)
[2019-07-19 05:37] LABS: BASOPHIL % 0.1 % (0.0-0.2); EOSINOPHIL # 0.5 10^3/uL (0.0-0.2); EOSINOPHIL % 6.5 % (0.0-5.0); LYMPHOCYTES % 12.9 % (24.0-44.0); MEAN CORP HGB 30.7 pg (26-34); MONOCYTES # 0.4 10^3/uL (0.3-0.8); MONOCYTES % 5.3 % (5.0-12.0); NEUTROPHIL # 5.8 10^3/uL (1.8-7.7); NEUTROPHILS % 75.1 % (41.0-85.0); PLATELET COUNT 197 10^3/uL (150-400); RED CELL DISTRIBUTION WIDTH 13.4 % (11.5-14.5)
[2019-07-19 06:03] LABS: CALCIUM 8.6 mg/dL (8.4-10.5); CARBON DIOXIDE 30.6 mmol/L (20.0-32)
[2019-07-19 07:00] VITALS: BP 147/64
[2019-07-19] MEDS: BACID PO SCH ×2 (07:36→12:00)
[2019-07-19] MEDS: GENASYME PO PRN (07:37)
[2019-07-19] MEDS: MAG-OX PO SCH (08:23)
[2019-07-19] MEDS: TOPROL XL PO SCH (08:24)
[2019-07-19] MEDS: LOVENOX SQ SCH (08:24)
[2019-07-19] MEDS: KEFLEX PO SCH (08:24)
[2019-07-19] MEDS: LACTATED RINGERS 1,000 ML IV SCH (08:34)
[2019-07-19] MEDS: FIBERCON PO SCH (08:34)
[2019-07-19] MEDS ORDERED: PROTONIX PO SCH (09:00)
--- NOTE | 2019-07-19 10:15 | PNH ---
DATE: SUBJECTIVE: A 48-year-old female in no acute distress, in room. She is tolerating diet. She reports she has some soreness, though no significant pain. OBJECTIVE: VITAL SIGNS: Her last recorded temperature is 98.7, current pulse 99, respiratory rate 20, blood pressure 147/64. ABDOMEN: The bowel sounds are positive and soft. She has serosanguineous output from both drains but it is clearing up. The left-sided drain apparently had 210 mL and the right-sided drain had 200 mL overnight collectively for the 24 hours. LABORATORY DATA: Today show white count 7.7, hemoglobin 9.3, platelet count 197. Chemistry today shows BUN of 2, creatinine 0.83. Potassium is up 3.8, albumin is 2.9. SURGICAL ASSESSMENT: 1. Status post exploratory laparotomy with extensive lysis of adhesions as well as bilateral retrorectus dissection with hernia repair using inlay mesh. 2. History of hypertension. PLAN: 1. The patient is seen and examined. Chart is reviewed. 2. The patient is advised about diet and activity restrictions after she goes home. 3. Continue management per primary service. Brando Bach DO DR: LILIAN/jeramy JOB# [id number] CC: Kirk SHARPE MD
[2019-07-19 11:20] VITALS: BP 116/66
[2019-07-19] MEDS: TRIPLE ANTIBIOTIC OINTMENT TP SCH (11:29)
[2019-07-19] MEDS ORDERED: CEPH250C PO (11:40)
[2019-07-19] MEDS ORDERED: NEOM1PAC TP (11:40)
[2019-07-19] MEDS ORDERED: Lactobacillus Acidophilus PO (11:40)
[2019-07-19] MEDS ORDERED: Magnesium Oxide PO (11:40)
[2019-07-19] MEDS ORDERED: TRAM50TA PO (11:40)
[2019-07-19] MEDS ORDERED: ACET1TAB38 PO (11:40)
[2019-07-19 12:45] VITALS: BP 116/66
--- NOTE | 2019-07-19 12:45 | NUR ---
discharged Pt DISCHARGED TO HOME FROM THE HOSPITAL, EDUCATED Pt ON DISCHARGE PACKET, PRESCRIPTIONS, WOUND CARE,Pt VERBALIZED UNDERSTANDING, PIC OF INCISION TAKEN. Pt LEFT THE FLOOR WITH HER SPOUSE.
--- NOTE | 2019-07-19 13:30 | DSH ---
DATE OF DISCHARGE: 07/19/2019 DISCHARGE DIAGNOSES: 1. Status post exploratory laparotomy with extensive lysis of adhesions as well as bilateral retrorectus dissection with hernia repair using inlay mesh. 2. Hypertension. 3. Morbid obesity. 4. Gastroesophageal reflux disease. 5. Anxiety/depression. DISCHARGE MEDICATIONS: The patient is going to be discharged home with the following medications: 1. Keflex 500 mg t.i.d. for 7 days. 2. Probiotic one tablet 3 times a day. 3. Magnesium oxide 400 mg b.i.d. 4. Tylenol #4 p.r.n. 5. Tramadol 50 mg p.r.n. 6. Flexeril 10 mg t.i.d. p.r.n. 7. Dicyclomine 20 mg every 4 hours p.r.n. 8. Escitalopram 20 mg daily. 9. Gabapentin 300 mg 3 times daily. 10. Metoprolol succinate 50 mg daily. 11. Omeprazole 20 mg daily. 12. Zofran p.r.n. 13. Promethazine p.r.n. DISPOSITION: The patient is going to be discharged home with self-care and she will be followed by Dr. Bach as an outpatient as well as her primary care physician. HOSPITAL COURSE AND IMPORTANT TESTS AND LABS: This was a 48-year-old female who had multiple abdominal surgeries and she came to the hospital with abdominal pain and the patient was evaluated by Dr. Bach and admitted to have her surgery. Due to her previous surgical history on her abdomen, the surgical procedure took a long time and the patient was placed in ICU for the first 24 hours after her surgery in order to keep her under close observation. The patient's surgery was uneventful and she showed quick recovery and she was able today to eat normal food and she was able to ambulate successfully. The patient today is stable, no complaints. PHYSICAL EXAMINATION: VITAL SIGNS: Temperature 98.7, pulse 77, respirations 18, blood pressure 116/66, O2 sat 97% on room air. HEART: Regular rhythm. CHEST: Clear. ABDOMEN: Soft. EXTREMITIES: No cyanosis, clubbing or edema. The patient is going to be discharged home and follow up with her PCP and Dr. Bach as an outpatient. HAYLEE SHARPE MD DR: JADEN/jeramy JOB# [id number]
== END 2019-07-19 12:25 | disposition home or self-care (01) | DRG 336 ==
LOC: EDSTATUS 07-16 08:00 → ICU 07-16 17:56 → MS 07-17 13:10
PROVIDERS: ADMIT Internal Medicine; ATTEND Internal Medicine
PROC: 0FN00ZZ Release Liver, Open Approach (ICD-10-PCS; 2019-07-16)
PROC: 0DNL0ZZ Release Transverse Colon, Open Approach (ICD-10-PCS; 2019-07-16)
PROC: 0WUF0JZ Supplement Abdominal Wall with Synthetic Substitute, Open Approach (ICD-10-PCS; 2019-07-16)
PROC: 0JX80ZZ Transfer Abdomen Subcutaneous Tissue and Fascia, Open Approach (ICD-10-PCS; 2019-07-16)
PROC: 0JB80ZZ Excision of Abdomen Subcutaneous Tissue and Fascia, Open Approach (ICD-10-PCS; 2019-07-16)
PROC: 0DQV0ZZ Repair Mesentery, Open Approach (ICD-10-PCS; 2019-07-16)
PROC: 0DNU0ZZ Release Omentum, Open Approach (ICD-10-PCS; principal; 2019-07-16 10:37)
DX: S36.409A Unspecified injury of unspecified part of small intestine, initial encounter (principal); K43.0 Incisional hernia with obstruction, without gangrene; K66.0 Peritoneal adhesions (postprocedural) (postinfection); I10 Essential (primary) hypertension; K21.9 Gastro-esophageal reflux disease without esophagitis; E66.01 Morbid (severe) obesity due to excess calories; F41.9 Anxiety disorder, unspecified; E87.6 Hypokalemia; F17.210 Nicotine dependence, cigarettes, uncomplicated; F32.9 Major depressive disorder, single episode, unspecified; Z68.39 Body mass index [BMI] 39.0-39.9, adult; Z88.2 Allergy status to sulfonamides
CPT/HCPCS: 36415; 74019; 80048; 80053; 83735; 84100; 85025; 85610; 85730; 93005; 94640; C1781; C9113; G0378; J0330; J0360; J1100; J1170; J1650; J1885; J2001; J2175; J2250; J2270; J2405; J2550; J2710; J3010; J3475; J3490; J7040; J7050; J7120; J7620; P9047; 88305; 88307; A4216; C9290; J0694; J1580; J3480; J8499

== ENCOUNTER → 2019-07-22 | Outpatient (CLI) | payer BC ==
[~2019-07-22] MED LIST changes: +CEPH250C PO; +Lactobacillus Acidophilus PO; +Magnesium Oxide PO; +NEOM1PAC TP; +OMEP20TA9 PO; +PROM25TA10 PO
[2019-07-22 14:45] LABS: MEAN CORP HGB 30.1 pg (26-34)
[2019-07-22 14:58] LABS: CALCIUM 8.8 mg/dL (8.4-10.5); CARBON DIOXIDE 30.7 mmol/L (20.0-32)
== END | disposition home or self-care (01) ==
LOC: LAB 14:30
PROVIDERS: ATTEND Surgery
DX: D64.9 Anemia, unspecified (principal)
CPT/HCPCS: 36415; 80053; 85027

== ENCOUNTER → 2019-08-03 | Outpatient (CLI) | payer BC ==
[2019-08-03 16:27] LABS: BASOPHIL # 0.1 10^3/uL (0.0-0.1); EOSINOPHIL # 1.1 10^3/uL (0.0-0.2); EOSINOPHIL % 12.5 % (0.0-5.0); LYMPHOCYTES # 1.95 10^3/uL1 (1.0-4.8); LYMPHOCYTES % 22.4 % (24.0-44.0); MEAN CORP HGB 28.7 pg (26-34); MONOCYTES # 0.7 10^3/uL (0.3-0.8); MONOCYTES % 7.8 % (5.0-12.0); NEUTROPHIL # 4.9 10^3/uL (1.8-7.7); NEUTROPHILS % 56.1 % (41.0-85.0); PLATELET COUNT 422 10^3/uL (150-400); RED CELL DISTRIBUTION WIDTH 13.7 % (11.5-14.5)
[2019-08-03 16:45] LABS: CALCIUM 8.7 mg/dL (8.4-10.5); CARBON DIOXIDE 28.2 mmol/L (20.0-32)
== END | disposition home or self-care (01) ==
LOC: LAB 15:37
PROVIDERS: ATTEND Surgery
DX: D64.9 Anemia, unspecified (principal)
CPT/HCPCS: 36415; 80053; 85025

== ENCOUNTER → 2019-10-15 | Outpatient (CLI) | payer BC | END | disposition home or self-care (01) | LOC: NPLAB 17:53 | PROVIDERS: ATTEND Surgery | DX: L76.34 Postprocedural seroma of skin and subcutaneous tissue following other procedure (principal) | CPT/HCPCS: 87070; 87075 ==

== ENCOUNTER → 2019-10-15 | Outpatient (CLI) | payer BC ==
--- NOTE | 2019-10-15 14:31 | DIREP ---
PROCEDURE:CT ABDOMEN/PELVIS W/O CONTRAST COMPARISON:[facility], CT, CT ABD/PELVIS W/ CONTRAST, 10/02/2017, 12:12 PM. [facility], CT, CT ABD/PELVIS W/O, 08/29/2016, 09:24 AM. INDICATIONS:LO3.311 CELLULITIS OF ABD WALL TECHNIQUE:Axial images were created through the abdomen and pelvis without intravenous contrast material. Oral contrast was administered. Sagittal and coronal reconstructions were performed from source images. FINDINGS: LUNG BASES:Normal. No visible pulmonary or pleural disease. LIVER:Normal. No significant liver lesions are identified. BILIARY:Normal. No visible dilatation or calcification. PANCREAS:Normal. No lesion, fluid collection, ductal dilatation, or atrophy. SPLEEN:Normal. No enlargement or focal lesion. ADRENALS:Normal. No mass or enlargement. URINARY TRACT:Normal. No focal lesions or hydronephrosis. AORTA/VASCULAR:Normal. No aneurysm. RETROPERITONEUM:Normal. No mass or adenopathy. BOWEL/MESENTERY:Normal. There is no intestinal obstruction, free fluid, free air or mesenteric inflammatory changes. ABDOMINAL WALL:Subcutaneous collection of fluid and air measures 2.2 by 5.1 x 14.8 cm. It has a thickened wall and there are inflammatory changes in the surrounding fat. PELVIC ORGANS: The uterus is atrophic or surgically absent. BONES:Normal for age. No bony lesion or acute fracture. OTHER:Negative. CONCLUSION: 1. Anterior abdominal subcutaneous collection of fluid and air in keeping with abscess. Dictated by: Homer Siegel Jr. on 10/15/2019 at 02:24 PM
== END | disposition home or self-care (01) ==
LOC: RAD 13:31
PROVIDERS: ATTEND Surgery
DX: L03.311 Cellulitis of abdominal wall (principal)
CPT/HCPCS: 74176

== ENCOUNTER → 2019-10-22 | Outpatient (CLI) | payer BC ==
[~2019-10-22] MED LIST changes: +DIPRIVAN IV ONE; +LIDOCAINE 1% VIAL ONE; +VERSED ONE
[2019-10-22 09:35] LABS: BASOPHIL % 0.6 % (0.0-0.2); EOSINOPHIL # 0.3 10^3/uL (0.0-0.2); EOSINOPHIL % 3.9 % (0.0-5.0); LYMPHOCYTES % 28.7 % (24.0-44.0); MEAN CORP HGB 26.6 pg (26-34); MONOCYTES # 0.4 10^3/uL (0.3-0.8); MONOCYTES % 6.4 % (5.0-12.0); NEUTROPHILS % 60.2 % (41.0-85.0); PLATELET COUNT 266 10^3/uL (150-400); RED CELL DISTRIBUTION WIDTH 16.3 % (11.5-14.5)
--- NOTE | 2019-10-27 13:53 | DIREP ---
PROCEDURE: CT GUIDED ABCESS DRAIN COMPARISON: None. INDICATIONS: ABDOMINAL ABSCESS TECHNIQUE: Informed consent was obtained from the patient. The skin was prepped and draped in a sterile fashion. Sedation was achieved by member the anesthesia staff. Lidocaine was administered for local anesthesia. CT images demonstrated anterior abdominal wall fluid collection. An 8 Turkmen drain was advanced directly into the fluid collection. 20 cc of cloudy yellow fluid was aspirated. FINDINGS: 6.2 x 1.6 cm subcutaneous fluid collection anterior abdominal wall. Number of images: 5 series were obtained CONCLUSION: 1. Percutaneous CT-guided drainage of anterior abdominal wall fluid collection. Dictated by: Homer Siegel Jr. on 10/22/2019 at 12:29 PM . [facility]
== END | disposition home or self-care (01) | DRG 920 ==
LOC: RAD 09:11
PROVIDERS: ATTEND Surgery
DX: T88.8XXA Other specified complications of surgical and medical care, not elsewhere classified, initial encounter (principal); L03.311 Cellulitis of abdominal wall; K43.2 Incisional hernia without obstruction or gangrene; F41.9 Anxiety disorder, unspecified; K21.9 Gastro-esophageal reflux disease without esophagitis; Z98.890 Other specified postprocedural states; Z79.899 Other long term (current) drug therapy; Z87.891 Personal history of nicotine dependence; Z88.8 Allergy status to other drugs, medicaments and biological substances; Y83.8 Other surgical procedures as the cause of abnormal reaction of the patient, or of later complication, without mention of misadventure at the time of the procedure; Y92.89 Other specified places as the place of occurrence of the external cause
CPT/HCPCS: 36415; 75989; 85025; 85610; 85730; 87070; 87075; J2001; J2250; J3490; C1729

== ENCOUNTER → 2019-11-05 | Outpatient (CLI) | payer BC ==
[~2019-11-05] MED LIST changes: -DIPRIVAN IV ONE; -LIDOCAINE 1% VIAL ONE; -VERSED ONE
--- NOTE | 2019-11-05 11:42 | DIREP ---
PROCEDURE:CT ABDOMEN/PELVIS W/ CONTRAST COMPARISON:[facility], CT, CT GUIDED ABCESS DRAIN, 10/22/2019, 10:49 AM. [facility], CT, CT ABD/PELVIS W/ CONTRAST, 06/23/2019, 00:05 AM. INDICATIONS:EVAL OF ABD DRAIN TECHNIQUE:Axial images were created through the abdomen and pelvis with non-ionic intravenous contrast material. No oral contrast was administered. Sagittal and coronal reconstructions were performed from source images. FINDINGS: LUNG BASES:Normal. No visible pulmonary or pleural disease. LIVER:Normal. No significant liver lesions are identified. BILIARY:Normal. No visible dilatation or calcification. PANCREAS:Normal. No lesion, fluid collection, ductal dilatation, or atrophy. SPLEEN:Normal. No enlargement or focal lesion. ADRENALS:Normal. No mass or enlargement. URINARY TRACT:Normal. No focal lesions or hydronephrosis. AORTA/VASCULAR:Normal. No aneurysm. RETROPERITONEUM:Normal. No mass or adenopathy. BOWEL/MESENTERY:The appendix is visualized and appears normal. There is no intestinal obstruction, free fluid, free air or mesenteric inflammatory changes. Surgical clips at the cecal base. Bowel anastomotic sutures are present in the lower pelvis. ABDOMINAL WALL:Significant interval decrease in size of the ventral abdominal wall fluid collection. The drain appears appropriately positioned with small amount of fluid and air at the midline incision site. There are surrounding inflammatory changes. Several left upper quadrant ventral abdominal wall defects. PELVIC ORGANS:Normal. No visible mass. Pelvic organs appropriate for patient age. BONES:Normal for age. No bony lesion or acute fracture. OTHER:Negative. CONCLUSION: 1. Interval decrease in size of ventral abdominal wall fluid collection. Pigtail drain is appropriately positioned with a small amount of fluid and air at the midline incision site. There are surrounding inflammatory changes. Dictated by: Tremayne Lr MD on 11/05/2019 at 11:47 AM
== END | disposition home or self-care (01) ==
LOC: RAD 10:06
PROVIDERS: ATTEND Surgery
DX: T88.8XXA Other specified complications of surgical and medical care, not elsewhere classified, initial encounter (principal); K43.2 Incisional hernia without obstruction or gangrene
CPT/HCPCS: 74177; Q9965

== ENCOUNTER → 2019-11-16 | Outpatient (CLI) | payer BC ==
--- NOTE | 2019-11-16 15:16 | DIREP ---
PROCEDURE:CT ABD/PELVIS W/O TECHNIQUE:The patient drank oral contrast material. Axial cuts were obtained through the abdomen and pelvis without IV contrast. The images were viewed at lung and soft tissue settings. Sagittal and coronal reconstructions are provided. COMPARISON:[facility], CT, CT ABD/PELVIS W/ CONTRAST, 11/05/2019, 10:23 AM. INDICATIONS:T88.8XXD COMPLICATIONS OF CARE, K43.2 INCISIONAL HERNIA FINDINGS: LOWER CHEST:The lung bases are clear. LIVER:Normal. BILIARY:Normal. PANCREAS:Normal. SPLEEN:Normal. URINARY TRACT:Normal. ADRENALS:Normal. AORTA/VASCULAR:Normal. RETROPERITONEUM:Normal. BOWEL/MESENTERY:Small bowel anastomosis in the upper mid pelvis which is well patent. ABDOMINAL WALL:Drain remains within the fluid collection in the ventral midline. The amount of fluid remains approximately the same with several foci of air within the collection. The collection measures approximately 10.57 x 3.86 x 1.61 cm (cc by medial-lateral by AP) on sagittal series 16218, image 49 and axial series 3, image 49. PELVIS:Previous hysterectomy. BONES:Normal. OTHER:Normal. CONCLUSION:No significant change in size of the air-fluid collection in the subcutaneous tissues in the ventral abdominal wall. Dictated by: Bhanu Patricio M.D. on 11/16/2019 at 03:06 PM
== END | disposition home or self-care (01) ==
LOC: RAD 11:15
PROVIDERS: ATTEND Surgery
DX: K43.2 Incisional hernia without obstruction or gangrene (principal); T88.8XXD Other specified complications of surgical and medical care, not elsewhere classified, subsequent encounter
CPT/HCPCS: 74176

== ENCOUNTER → 2019-12-10 | Outpatient (CLI) | payer BC ==
--- NOTE | 2019-12-10 15:35 | DIREP ---
PROCEDURE:CT ABDOMEN/PELVIS W/ CONTRAST COMPARISON:[facility], CT, CT ABD/PELVIS W/O, 11/16/2019, 02:34 PM. [facility], CT, CT ABD/PELVIS W/ CONTRAST, 11/05/2019, 10:23 AM. INDICATIONS:COMPLICATIONS OF CARE, INCISIONAL HERNIA TECHNIQUE:Axial images were created through the abdomen and pelvis with non-ionic intravenous contrast material. Oral contrast was administered. Sagittal and coronal reconstructions were performed from source images. FINDINGS: LUNG BASES:Normal. No visible pulmonary or pleural disease. LIVER:Normal. No significant liver lesions are identified. BILIARY:Normal. No visible dilatation or calcification. PANCREAS:Normal. No lesion, fluid collection, ductal dilatation, or atrophy. SPLEEN:Normal. No enlargement or focal lesion. ADRENALS:Normal. No mass or enlargement. URINARY TRACT:Normal. No focal lesions or hydronephrosis. AORTA/VASCULAR:Normal. No aneurysm. RETROPERITONEUM:Normal. No mass or adenopathy. BOWEL/MESENTERY:Normal. There is no intestinal obstruction, free fluid, free air or mesenteric inflammatory changes. ABDOMINAL WALL:Stranding and edema in the midline. Small air-fluid collection, in keeping with residual abscess. Drainage catheter has been removed. Collection measuring 2 x 1 by 10 cm. PELVIC ORGANS:Apparent hysterectomy BONES:Normal for age. No bony lesion or acute fracture. OTHER:Negative. CONCLUSION:Decreasing size of residual abscess. Drainage catheter is been removed. Dictated by: Homer Stone MD on 12/10/2019 at 03:30 PM
== END | disposition home or self-care (01) ==
LOC: RAD 13:57
PROVIDERS: ATTEND Surgery
DX: K43.2 Incisional hernia without obstruction or gangrene (principal); T88.8XXD Other specified complications of surgical and medical care, not elsewhere classified, subsequent encounter
CPT/HCPCS: 36415; 74177; 82565; Q9965